=== PATIENT | female | born 1975 | race Caucasian/White ===

== ENCOUNTER 2019-09-16 13:30 | Outpatient (CLI) | payer OTHER, SELFPAY ==
--- NOTE | 2019-09-16 | XR_ITS ---
WS: [id number] RIGHT KNEE: 3 VIEW(S) TECHNIQUE: AP, oblique(s) and lateral. HISTORY: KNEE PAIN COMPARISON: None available. No fracture or dislocation. No joint space narrowing or osteophytes. Small suprapatellar joint effusion. No soft tissue abnormality. XR/XR knee RT 3V* [id number] IMPRESSION: 1. No acute fracture identified. 2. Small suprapatellar joint effusion. 3. If pain persists consider follow-up CT evaluation for occult fracture.
== END 2019-09-16 13:31 | disposition home or self-care (01) ==
PROVIDERS: Family Provider Nurse Practitioner Family; PCP Nurse Practitioner Family; Visit Provider Nurse Practitioner Family
DX: M25.561 Pain in right knee (principal); M25.461 Effusion, right knee
CPT/HCPCS: 73562

== ENCOUNTER 2019-09-18 13:48 | Outpatient (CLI) | payer OTHER, SELFPAY | END 2019-09-18 13:49 | disposition home or self-care (01) | LOC: WOUND 13:48 | PROVIDERS: Family Provider Nurse Practitioner Family; PCP Nurse Practitioner Family; Visit Provider Thoracic Surgery (Cardiothoracic Vascular Surgery) | DX: I96 Gangrene, not elsewhere classified (principal); L97.822 Non-pressure chronic ulcer of other part of left lower leg with fat layer exposed | CPT/HCPCS: 11042; G0463 ==

== ENCOUNTER 2019-09-25 14:40 | Outpatient (CLI) | payer OTHER, SELFPAY | END 2019-09-25 14:41 | disposition home or self-care (01) | LOC: WOUND 14:40 | PROVIDERS: Family Provider Nurse Practitioner Family; PCP Nurse Practitioner Family; Visit Provider Thoracic Surgery (Cardiothoracic Vascular Surgery) | DX: I96 Gangrene, not elsewhere classified (principal); L97.822 Non-pressure chronic ulcer of other part of left lower leg with fat layer exposed | CPT/HCPCS: 11042 ==

== ENCOUNTER 2019-10-09 09:25 | Outpatient (CLI) | payer OTHER, SELFPAY | END 2019-10-09 09:26 | disposition home or self-care (01) | LOC: WOUND 09:26 | PROVIDERS: Family Provider Nurse Practitioner Family; PCP Nurse Practitioner Family; Visit Provider Emergency Medicine | DX: I96 Gangrene, not elsewhere classified (principal); L97.822 Non-pressure chronic ulcer of other part of left lower leg with fat layer exposed | CPT/HCPCS: 11042; 87070; 87176; 87205 ==

== ENCOUNTER 2019-10-16 08:56 | Outpatient (CLI) | payer OTHER, SELFPAY | END 2019-10-16 08:57 | disposition home or self-care (01) | LOC: WOUND 08:59 | PROVIDERS: Family Provider Nurse Practitioner Family; PCP Nurse Practitioner Family; Visit Provider Emergency Medicine | DX: L97.822 Non-pressure chronic ulcer of other part of left lower leg with fat layer exposed (principal) | CPT/HCPCS: 11042 ==

== ENCOUNTER 2019-10-23 10:27 | Outpatient (CLI) | payer OTHER, SELFPAY | END 2019-10-23 10:28 | disposition home or self-care (01) | LOC: WOUND 10:29 | PROVIDERS: Family Provider Nurse Practitioner Family; PCP Nurse Practitioner Family; Visit Provider Nurse Practitioner Family | DX: L97.822 Non-pressure chronic ulcer of other part of left lower leg with fat layer exposed (principal) | CPT/HCPCS: 11042 ==

== ENCOUNTER 2020-10-18 16:05 | Emergency (ER) | payer OTHER, SELFPAY ==
[2020-10-18 16:34] VITALS: BP 201/145; PULSE 96; RESP 22; TEMP 36.4; O2SAT 92; BMI 43.0
--- NOTE | 2020-10-18 16:35 | ED_ITS ---
HPI - Epistaxis General: Chief complaint: Epistaxis Stated complaint: nose bleed , positive covid Time Seen by Provider: 10/18/20 16:35 History of Present Illness: HPI Narrative: 45-year-old female comes in today with complaints of nosebleed on and off for the last 3 days. Patient reports some significant episodes of bleeding at a time. Patient has had a recent Covid 19 infection about 8 days ago. Patient appears well. Patient does report some sinus pain and pressure. Review of Systems General: Reports: 10 or more systems reviewed and unremarkable except in HPI and below ENMT: Reports: epistaxis Physical Exam Const: COMMON NORMALS: no acute distress and patient oriented x3 GENERAL APPEARANCE: cooperative HENMT: COMMON NORMALS: normocephalic HEAD & SCALP: normal to inspection and normocephalic NOSE: Epistaxis present on the left TYMPANIC MEMBRANE: TM abnormal TM laterality: left Details: fluid behind TM and bilateral MOUTH: Normal oral and palatal mucosa present THROAT: posterior oropharynx normal Eye: GENERAL EYE: appearance normal, both eyes and all related structures Neck/C-Spine: COMMON NORMALS: full ROM Lymph: LYMPHATIC: no lymphadenopathy noted Chest: COMMONS NORMALS: normal inspection of the chest Resp: COMMON NORMALS: normal respiratory effort EFFORT & INSPECTION: Yes able to speak in complete sentences Cardio: COMMON NORMALS: regular rate and regular rhythm RATE: regular rate RHYTHM: regular rhythm GI: COMMON NORMALS: non-tender Extremity: COMMON NORMALS: normal to inspection Neuro: COMMON NORMALS: patient oriented x3 and moves all extremities Psych: COMMON NORMALS: mental status grossly normal and cooperative Skin: COMMON NORMALS: no rashes or lesions noted GENERAL SKIN EXAM: no rashes or lesions noted Course Vital Signs: Vital signs: Vital Signs Temperature 97.6 F 10/18/20 16:34 Pulse Rate 96 10/18/20 16:34 Respiratory Rate 22 H 10/18/20 16:34 Blood Pressure 201/145 10/18/20 16:34 Pulse Oximetry 92 10/18/20 16:34 MDM - Epistaxis MDM Narrative: Medical decision making narrative: 45-year-old female comes in with nosebleed. On exam patient has some blood in the left naris. Also patient has fluid behind both tympanic membranes which panic membrane appears blood- tinged. Some sinus pressure is noted on palpation. Vital signs are normal, except for elevated blood pressure. Differential diagnosis includes but not limited to sinusitis, idiopathic epistaxis, hypertension. Patient was given 1 tablet 0.1 mg clonidine, 2 sprays of aspirin each nostril, and nasal clamp. Bleeding was controlled on exam. Patient will be continued on Augmentin and Afrin nasal spray and recommended to continue with routine medications for blood pressure. Patient reported understanding of care plan and need for follow-up with ENT. Case management was requested to assist with ENT referral. Discharge Plan Discharge Patient Disposition: Home Clinical Impression: Epistaxis Condition: Stable Prescriptions: New Augmentin 875-125 mg tablet 1 tab PO BID Qty: 14 RF: 0 No Action lovastatin 40 mg tablet 40 mg PO BEDTIME RF: 0 Euthyrox 100 mcg tablet 100 mcg PO QAM RF: 0 ibuprofen 200 mg Tablet 800 mg PO PRN RF: 0 lisinopril 5 mg tablet 5 mg PO QAM RF: 0 hydrochlorothiazide 25 mg tablet 25 mg PO QAM RF: 0 Discharge Orders: Discharge ED (Routine); Ordered 10/18/20 Ordered By: Ramon Bazan Referrals: Lito Salas NP [Primary Care Provider] - Discharge Diet: Usual diet Discharge Activity: Increase activity as tolerated Patient Instructions: Epistaxis (ED), Opioid Safety Activity Restrictions/Additional Instructions: Home and rest. Drink plenty of water. Continue with routine medications as directed. Take antibiotic twice a day for 7 days. Use Afrin nasal spray 2 sprays each nostril 3 times a day for the next 3 days. Call ENT office in the morning to arrange a follow-up appointment for your nosebleed. I will place a referral with case management if you need assistance. Return to the ER for worsening symptoms or new concerns. Avoid blowing your nose or picking her nose. Coding Level of Care Code ED Bottom Cager for Dennise Felipe
[2020-10-18] MEDS: amoxicillin-clav 875-125 mg Tablet 1 TAB PO (17:39)
[2020-10-18] MEDS: oxymetazoline 0.05% Nasal Spray 15 mL 2 SPRAY NOSTRIL-B (17:39)
[2020-10-18 17:40] VITALS: BP 142/91
[2020-10-18] MEDS: cloNIDine 0.1 mg Tablet PO (17:40)
[2020-10-18 17:51] VITALS: BP 142/91; PULSE 90; O2SAT 92
--- NOTE | 2020-10-19 15:26 | DCPLANNER ---
manager roofing had message to schedule a follow up appointment for patient with ENT. manager roofing emailed patients information to Pam Casper and Phyllis at [facility] General Surgery / ENT clinic. Patients information will be printed and reviewed. Clinic will call patient with appointment information.
--- NOTE | 2020-10-21 14:20 | DCPLANNER ---
Patient has a follow up appointment scheduled for , October 29, 2020 at 10:[address] Eric. Clinic will call patient with appointment information.
--- NOTE | 2020-11-06 14:48 | DCPLANNER ---
Patient had a follow up appointment scheduled for 10.29.20 with ENT - appointment was rescheduled.
== END 2020-10-18 17:45 | disposition home or self-care (01) ==
PROVIDERS: Emergency Provider Nurse Practitioner Family; PCP Nurse Practitioner Family
DX: R04.0 Epistaxis (principal)
CPT/HCPCS: 99283

== ENCOUNTER 2022-08-18 15:50 | Emergency (ER) | payer SELFPAY ==
[2022-08-18 15:59] VITALS: BP 181/94; PULSE 91; RESP 18; TEMP 36.8; O2SAT 98
--- NOTE | 2022-08-18 16:23 | W.ED.BACK ---
HPI - Back Pain/Injury General: Chief Complaint: Back Pain/Injury Stated Complaint: Low back pain Time Seen by Provider: 08/18/22 15:56 History of Present Illness: Patient is a 47-year-old female comes to the ED with low back pain. Symptoms started about 2-1/2 weeks ago. 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 2-1/2 weeks ago pbfcef-yo-zqi fell down on the floor and patient went to pick her up and injured her lower back. Patient says she was not using good body mechanics when she went to lift her pdqwon-pc-ljz causing her lower back pain on left side. Pain is currently a 9 out of 10 and radiates down into the upper part of left leg. Denies any cauda equina symptoms, dysuria or hematuria. Patient has been taking at home Tylenol ibuprofen with no relief. Associated symptoms: Deny abdominal pain, chills, dysuria, fatigue, fever(s), hematuria, nausea or vomiting Review of Systems Const: Denies: fever(s), chills or fatigue Eyes: Denies: change in vision or eye discomfort ENMT: Denies: throat pain, odynophagia, nasal discharge or nasal congestion Card: Denies: chest pain, palpitations, edema, swelling of feet/ankles, dyspnea on exertion or orthopnea Resp: Denies: dyspnea, productive cough or non-productive cough GI: Denies: abdominal pain, nausea, vomiting, diarrhea, constipation or hematochezia : Denies: flank pain, dysuria or hematuria Musc: Reports: back pain; Denies: neck pain or extremity swelling Skin/Breast: Denies: rash or new lesions Neuro: Denies: headache(s), numbness in extremities or weakness in extremities PFS ED PFSH: Medical History (Updated 08/19/22 @ 08:20 by ELMER Hickman) No pertinent family history Surgical History (Updated 08/19/22 @ 08:20 by ELMER Hickman) No pertinent past surgical history Physical Exam Const: COMMON NORMALS: no acute distress, patient oriented x3 and alert HENMT: COMMON NORMALS: normocephalic HEAD & SCALP: normocephalic MOUTH: Normal oral and palatal mucosa present THROAT: posterior oropharynx normal and uvula midline Neck/C-Spine: COMMON NORMALS: supple GENERAL: Yes normal visual inspection Resp: COMMON NORMALS: normal respiratory effort, No retractions, No use of accessory muscles and clear to auscultation bilaterally AUSCULTATION: clear to auscultation bilaterally Cardio: COMMON NORMALS: regular rate, regular rhythm, S1 normal heart sound present, S2 normal heart sound present, No gallops present (Cardio), No clicks present (Cardio), No murmurs present (Cardio) and Peripheral pulses 2+ throughout RATE: regular rate RHYTHM: regular rhythm HEART SOUNDS: S1 normal heart sound present and S2 normal heart sound present PERIPHERAL PULSES: Peripheral pulses 2+ throughout GI: COMMON NORMALS: Normal to inspection, nondistended, normoactive bowel sounds present, Soft to palpation, non-tender and no masses PALPATION: Yes Soft to palpation : COMMON NORMALS: Yes no CVA tenderness BLADDER/KIDNEY EXAM: Yes no CVA tenderness Back/Pelvis: COMMON NORMALS: no CVA tenderness LUMBAR SPINE/LOWER BACK: Yes pain with ROM, No lumbar spinal tenderness and Yes paraspinal muscle tenderness Lumbar paraspinal muscle tenderness: left left lumbar paraspinal muscle tenderness: L3, L4 and L5 Extremity: COMMON NORMALS: normal to inspection Neuro: COMMON NORMALS: patient oriented x3 SENSORIUM/ORIENTATION: Yes alert GAIT: Yes Normal gait present Skin: GENERAL SKIN EXAM: dry skin Course Vital Signs: Vital signs: Vital Signs Temperature 98.2 F 08/18/22 15:59 Pulse Rate 91 08/18/22 15:59 Respiratory Rate 18 08/18/22 15:59 Blood Pressure 181/94 08/18/22 15:59 Pulse Oximetry 98 08/18/22 15:59 Oxygen Delivery Me thod Room Air 08/18/22 15:59 MDM - Back Pain/Injury Medical Decision Making Patient is a 47-year-old female comes to the ED with low back pain. Symptoms started about 2-1/2 weeks ago. 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 2-1/2 weeks ago qrqvts-px-tuu fell down on the floor and patient went to pick her up and injured her lower back. Patient says she was not using good body mechanics when she went to lift her dazcvg-sp-uid causing her lower back pain on left side. Pain is currently a 9 out of 10 and radiates down into the upper part of left leg. Denies any cauda equina symptoms, dysuria or hematuria. Patient has been taking at home Tylenol ibuprofen with no relief. Vitals are stable. Patient appears nontoxic in no acute distress. She is some lumbar paraspinal muscle tenderness on the left side L3-L5. Rest of exam is benign. Patient was given dose of Toradol, Norflex and Decadron here in the ED. She is stable for discharge home diagnosed with strain of lumbar region and sent home with a prescription for muscle relaxer, NSAID and prednisone. Return to ED precautions given. Follow-up with PCP within the next week for reevaluation. Patient understood and agreed with plan. Discharge Plan Discharge Patient Disposition: Home Clinical Impression: Strain of lumbar region Qualifiers: Encounter type: initial encounter Qualified Code(s): S39.012A - Strain of muscle, fascia and tendon of lower back, initial encounter Condition: Stable Prescriptions: New meloxicam 15 mg tablet 15 mg PO DAILY PRN (Reason: pain) Qty: 20 0RF Medrol (Oswald) 4 mg tablets,dose pack See Rx Instructions .ROUTE .COMPLEX Qty: 21 0RF Rx Instructions: orally per package directions methocarbamol 750 mg tablet 750 mg PO Q8H PRN (Reason: Back muscle spasms and pain) Qty: 20 0RF No Action lovastatin 40 mg tablet 40 mg PO BEDTIME Euthyrox 100 mcg tablet 100 mcg PO QAM ibuprofen 200 mg Tablet 800 mg PO PRN lisinopril 5 mg tablet 5 mg PO QAM hydrochlorothiazide 25 mg tablet 25 mg PO QAM Augmentin 875-125 mg tablet 1 tab PO BID Qty: 14 0RF Discharge Orders: Discharge ED (Routine); Ordered 08/18/22 Ordered By: Evan Owen Referrals: Reshma Fuchs FNP [Primary Care Provider] - Discharge Diet: Regular Discharge Activity: Increase activity as tolerated Patient Instructions: Low Back Strain (ED) Activity Restrictions/Additional Instructions: Follow-up with medical provider as directed in the next 5 to 7 days for reevaluation. Stretch lower back out daily, massage sore muscles to help with symptoms. Take medications as prescribed. You can start taking your prescribed Medrol Dosepak tomorrow since you received a shot of steroid here in the ED today. Return to the ER or your medical provider if condition worsens. Please read and understand discharge instructions. Thank you for choosing [facility] for your healthcare needs today. Please realize this is an emergency room and that we are providing you with a medical screening exam and this may not be complete and all inclusive of all the testing and or work up that you may need to determine your ailment or severity of your illness. It is very important that you follow up as instructed or that you return to the Emergency Department should you have concerns or if your condition changes or worsens in any way. Coding Level of Care Code ED Lime [place]n Worker for Dennise Felipe
[2022-08-18] MEDS: dexamethasone 10 mg/mL INJ IM (16:38)
[2022-08-18] MEDS: ketorolac 60 mg/2 mL INJ IM (16:38)
[2022-08-18] MEDS: orphenadrine 30 mg/mL Inj 2 mL 60 MG IM (16:38)
== END 2022-08-18 17:07 | disposition home or self-care (01) ==
PROVIDERS: Emergency Provider Physician Assistant; PCP Nurse Practitioner Family
DX: S39.012A Strain of muscle, fascia and tendon of lower back, initial encounter (principal); X50.0XXA Overexertion from strenuous movement or load, initial encounter; Y93.F2 Activity, caregiving, lifting
CPT/HCPCS: 96372; 99284; J1100; J1885; J2360

== ENCOUNTER 2023-04-13 13:58 | Outpatient (CLI) | payer OTHER, SELFPAY ==
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
== END 2023-04-13 13:59 | disposition home or self-care (01) ==
LOC: RAD 14:01
PROVIDERS: PCP Family Medicine; Visit Provider Nurse Practitioner
DX: T14.8XXA Other injury of unspecified body region, initial encounter (principal); V89.2XXA Person injured in unspecified motor-vehicle accident, traffic, initial encounter; M47.814 Spondylosis without myelopathy or radiculopathy, thoracic region; M41.9 Scoliosis, unspecified
CPT/HCPCS: 72020

== ENCOUNTER → 2023-04-20 14:03 | Outpatient (BNVA) | payer OTHER, SELFPAY | PROVIDERS: PCP Family Medicine; Visit Provider Family Medicine | DX: E03.9 Hypothyroidism, unspecified (principal); Z86.39 Personal history of other endocrine, nutritional and metabolic disease | CPT/HCPCS: 80053; 84439; 84443; 86376 ==

== ENCOUNTER 2023-05-18 13:47 | Outpatient (CLI) | payer OTHER, SELFPAY ==
--- NOTE | 2023-05-18 13:56 | MM_ITS ---
WS: [id number] BILATERAL SCREENING DIGITAL TOMOSYNTHESIS MAMMOGRAM WITH CAD HISTORY: SCREENING COMPARISON: None available. Bilateral CC and MLO views with tomosynthesis and synthetic mammography submitted. Computer aided det ection analyzed. Breast composition: There are scattered areas of fibroglandular density. No suspicious masses, microc alcifications or architectural distortion. Benign lymph nodes in the upper outer quadrants of each br east. IMPRESSION: MM/[place] [id number] BI-RADS: 2-Benign FOLLOW UP: 1 Year Follow-up
== END 2023-05-18 13:48 | disposition home or self-care (01) ==
LOC: RAD 13:48
PROVIDERS: PCP Family Medicine; Visit Provider Family Medicine
DX: Z12.31 Encounter for screening mammogram for malignant neoplasm of breast (principal)
CPT/HCPCS: 77063; 77067

== ENCOUNTER → 2023-06-13 12:14 | Outpatient (BNVA) | payer OTHER, SELFPAY | PROVIDERS: PCP Family Medicine; Visit Provider Family Medicine | DX: M10.9 Gout, unspecified; E03.9 Hypothyroidism, unspecified | CPT/HCPCS: 84439; 84443; 84550 ==

== ENCOUNTER 2024-08-05 11:39 | Inpatient (IN) | payer SELFPAY ==
[2024-08-05] VITALS (8 sets, daily range): BP systolic 143–192; BP diastolic 84–113; PULSE 92–99; RESP 16–20; TEMP 36.6; O2SAT 89–93
--- NOTE | 2024-08-05 11:42 | ECG_ITS ---
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 Measurements Intervals [place] Rate: 100 P: 23 CA: 150 QRS: 12 QRSD: 100 T: -45 QT: 377 QTc: 488 Interpretive Statements SINUS TACHYCARDIA POSSIBLE ANTERIOR MYOCARDIAL INFARCTION , OF INDETERMINATE AGE [30 ms Q WAVE IN V3/V4, OR R < 0.2 mV IN V4] MODERATE T-WAVE ABNORMALITY, CONSIDER LATERAL ISCHEMIA [-0.1+ mV T-WAVE IN I/aVL/V5/V6] MODERATE T-WAVE ABNORMALITY, CONSIDER INFERIOR ISCHEMIA [-0.1+ mV T-WAVE IN II/aVF] Compared to ECG 05/11/2016 11:39:23 Myocardial infarct finding now present T-wave abnormality now present Possible ischemia now present Sinus rhythm no longer present Electronically Signed On 08-06-2024 06:27:43 CDT by Angelito Porter M.D. [email or web address]
--- NOTE | 2024-08-05 11:42 | XRR_ITS ---
PROCEDURE INFORMATION: Exam: XR Chest Exam date and time: 08/05/2024 11:55 AM Age: 49 years old Clinical indication: Shortness of breath; Additional info: SOB TECHNIQUE: Imaging protocol: Radiologic exam of the chest. Views: 1 view. COMPARISON: CR XR thoracic spine 1V [id number] 04/13/2023 2:39 PM FINDINGS: Lungs: Unremarkable. No consolidation. Pleural spaces: Unremarkable. No pleural effusion. No pneumothorax. Heart/Mediastinum: Unremarkable. No cardiomegaly. Bones/joints: Unremarkable. XR/XR chest 1V portable [id number] IMPRESSION: No acute findings.
[2024-08-05 12:04] LABS: Basophils # 0.1 10^3/uL (0.0-0.1); Basophils % 0.6 %; Eosinophils # 0.2 10^3/uL (0.0-0.8); Eosinophils % 2.8 %; Hematocrit 42.6 % (36-47); Lymphocytes # 1.1 10^3/uL (0.8-4.8); Lymphocytes % 13.5 %; Mean Corpuscular HGB Conc 34.3 g/dL (30-55); Mean Corpuscular Hemoglobin 36.5 pg (27-33); Mean Corpuscular Volume 106.5 fl (85-98); Mean Platelet Volume 10.3 fL (7.4-10.4); Monocytes # 0.4 10^3/uL (0.2-0.9); Monocytes % 4.6 %; Neutrophils # 6.61 10^3/uL (1.8-7.7); Neutrophils % 78.3 %; Nucleated Red Blood Cells % 0 %; Platelet Count 213 10^3/cmm (157-399); Red Cell Distribution Width 14.4 % (12.1-15.1); White Blood Count 8.45 10^3/uL (3.29-11.43)
[2024-08-05 12:18] LABS: INR 1.05 (0.8-1.2)
[2024-08-05 12:39] LABS: Alanine Aminotransferase 14 U/L (0-33); Albumin Level 3.6 g/dL (3.5-5.2); Alkaline Phosphatase 113 U/L (35-105); Anion Gap 17.6 (5-19); Aspartate Amino Transferase 15 U/L (0-32); Blood Urea Nitrogen 10 mg/dL (6-20); Calcium 8.8 mg/dL (8.5-10.5); Carbon Dioxide 22 mmol/L (22-29); Chloride 100 mmol/L (98-107); Creatinine Clr Calc Pharmacy 165.1782; Globulin 3.4 g/dL (1.3-4.6); Glomerular Filtration Rate 88.2 mL/min (90-130); Glucose 128 mg/dL (65-115); NT Pro B Type Natriuretic Pept 2071 pg/mL (0-125); Osmolality Calculated 283 mOsm/kg (285-295); Potassium 3.6 mmol/L (3.5-5.1); Sodium 136 mmol/L (136-145); Total Bilirubin 0.6 mg/dL (0.15-1.2)
--- NOTE | 2024-08-05 12:41 | USR_ITS ---
PROCEDURE INFORMATION: Exam: US Duplex Right Upper Extremity Arteries Exam date and time: 08/05/2024 1:40 PM Age: 49 years old Clinical indication: Pain; Arm, lower; Right; Additional info: Pain, coolness, numbness TECHNIQUE: Imaging protocol: Right Real-time ultrasound scan of the arteries of the right upper extremity with 2-D dunlap scale, color Doppler flow and spectral waveform analysis. COMPARISON: No relevant prior studies available. FINDINGS: Right subclavian artery: No occlusion or significant stenosis. Normal waveform. Right axillary artery: No occlusion or significant stenosis. Monophasic waveform. Right brachial artery: No occlusion or significant stenosis. Monophasic waveform. Right radial artery: No occlusion or significant stenosis. Monophasic waveform. Right ulnar artery: No occlusion or significant stenosis. Monophasic waveform. US/[place] [id number] IMPRESSION: Monophasic waveforms distal to the subclavian artery.
--- NOTE | 2024-08-05 12:42 | W.ED.GENADLT ---
HPI - General Adult General: Chief complaint: Shortness of Breath/Dyspnea Stated complaint: sob, R side upper body numbness Time Seen by Provider: 08/05/24 12:22 Source: patient Mode of arrival: ambulatory Limitations: no limitations History of Present Illness: Patient is a 49-year-old female who presents to ED today stating that she has been sick for three days. She tells me she has had a productive cough, shortness of breath, chest pain, subjective fever 2 days ago, and noticed yesterday she started having some pain to the right side of her neck and right arm. She felt like pain was so bad while in the shower trying to wash her hair that she had to stop. She reports the arm feels burning and numb. She has not noticed any obvious color or temperature changes to the extremity. No edema. Denies sick contacts. She states she has a pulse ox at home and states at times, her oxygen was getting down into the mid 80s. Patient is satting roughly 93 to 94% on room air during my initial examination. Onset (ago): day(s) Radiation: neck and extremity Quality: burning Pain Consistency: constant Relieving factors: none Exacerbating factors: none Associated symptoms: Reports chest pain and dyspnea; Deny headache(s), nausea, rash, palpitations, syncope or vomiting Treatments prior to arrival: none Related Data Home Medications ?Medication ?Instructions ?Recorded ?Confirmed allopurinol 100 mg tablet 200 mg PO DAILY PRN gout 08/05/24 08/05/24 minocycline 100 mg capsule 100 mg PO BID PRN Acne/rash 08/05/24 08/05/24 Previous Rx's ?Medication ?Instructions ?Recorded methocarbamol 750 mg tablet 750 mg PO TID PRN muscle spasm #20 04/20/23 tabs levothyroxine 75 mcg capsule 75 mcg PO DAILY #60 caps 08/11/23 indomethacin 50 mg capsule See Rx Instructions .Route 10/09/23 .COMPLEX #21 caps meloxicam 15 mg tablet 15 mg PO DAILY PRN back pain #30 01/08/24 tabs Allergies Allergy/AdvReac Type Severity Reaction Status Date / Time No Known Allergies Allergy Verified 08/05/24 11:56 Review of Systems Const: Reports: fever(s) (two days ago-subjective); Denies: chills or body aches Eyes: Denies: change in vision, blurry vision or photophobia ENMT: Denies: throat pain, odynophagia, nasal discharge, nasal congestion or sinus pain Card: Reports: chest pain and dyspnea on exertion; Denies: palpitations, irregular heart rhythm, edema, swelling of feet/ankles, lightheadedness, syncope, pre-syncope, orthopnea, leg pain with exertion or acrocyanosis Resp: Reports: dyspnea, productive cough, change in phlegm color and chest congestion; Denies: wheezing, pain on inspiration or hemoptysis GI: Denies: abdominal pain, nausea, vomiting, heartburn or diarrhea : Denies: flank pain or dysuria Musc: Reports: neck pain and extremity pain (R arm); Denies: back pain, extremity swelling, joint pain, joint swelling, joint redness, joint warmth or joint stiffness Skin/Breast: Denies: rash Neuro: Reports: sensory changes (R arm numbness/burning); Denies: headache(s), weakness in extremities, lack of coordination, difficulty walking or dizziness PFSH ED PFSH: Medical History Morbid obesity with BMI of 50.0-59.9, adult Rosacea Hypothyroidism No pertinent family history Surgical History No pertinent past surgical history Social History Smoking and tobacco/nicotine status: never used tobacco/nicotine Alcohol intake: current Alcohol intake frequency: few times a month Substance/Drug Use: never Adopted: No Caregiver/support person: No Lives independently: No Household members: spouse and family Physical Exam Const: COMMON NORMALS: no acute distress, patient oriented x3, no limitations, alert and well nourished GENERAL APPEARANCE: cooperative NUTRITIONAL APPEARANCE: obese morbidly obese (BMI 54.5) ORIENTATION/CONSCIOUSNESS: Yes awake, Yes oriented to person, Yes oriented to place and Yes oriented to time HENMT: COMMON NORMALS: normocephalic and atraumatic HEAD & SCALP: normal to inspection, normocephalic and atraumatic FACE & SINUS: normal facial exam and face symmetric Eye: COMMON NORMALS: no scleral icterus Neck/C-Spine: COMMON NORMALS: full ROM, no lymphadenopathy, supple, no meningeal signs and no JVD GENERAL: Yes normal visual inspection, No anterior neck swelling and No submandibular swelling CERVICAL SPINE: Yes cervical ROM normal Chest: COMMONS NORMALS: normal inspection of the chest and normal palpation of entire chest wall Resp: COMMON NORMALS: normal respiratory effort and clear to auscultation bilaterally AUSCULTATION: clear to auscultation bilaterally Cardio: COMMON NORMALS: no JVD, regular rate and regular rhythm RATE: regular rate RHYTHM: regular rhythm : COMMON NORMALS: Yes no CVA tenderness BLADDER/KIDNEY EXAM: Yes no CVA tenderness Back/Pelvis: COMMON NORMALS: no CVA tenderness Extremity: COMMON NORMALS: normal to inspection, full ROM, no joint enlargement, no clubbing, cyanosis or edema, no calf tenderness and no pedal edema GENERAL: Yes normal exam except as noted OTHER: R UE feels slightly cooler than L; could not obviously palpate radial artery; she complains of parasthesias; full ROM-does complain of pain in her shoulder/neck with passive ROM Neuro: JENNIFER COMA SCALE: document GCS findings [place] coma scale eye opening: Spontaneous [place] coma scale verbal response: Orientated [place] coma scale motor response: Obey commands Jennifer coma scale total score: 15 COMMON NORMALS: patient oriented x3, moves all extremities and no focal motor deficits SENSORIUM/ORIENTATION: Yes alert, Yes oriented to person, Yes oriented to place and Yes oriented to time MENINGEAL SIGNS: Yes no meningeal signs Skin: COMMON NORMALS: no rashes or lesions noted GENERAL SKIN EXAM: no rashes or lesions noted Course Consultations: Consultation #1: Dr. Rueda vascular-as she has flow throughout extremity they would not intervene on this acutely and recommend follow up as an outpatient Consultation #2: Dr. Hair-reviewed CT findings of bilateral PEs/saddle embolus; stated they would not perform thrombectomy unless there was evidence of heart strain on an echo or abnormal troponins (discussed her baseline and 2hr trops); discussed how there was strain based on her EKG but he said it is more dependent on echo/trop results Vital Signs: Vital signs: Vital Signs Temperature 97.9 F 08/05/24 11:46 Pulse Rate 96 08/05/24 21:34 Respiratory Rate 16 08/05/24 21:34 Blood Pressure 153/97 08/05/24 21:34 Pulse Oximetry 93 08/05/24 21:34 Oxygen Delivery Me thod Room Air 08/05/24 21:34 MDM - General Adult Medical Decision Making Patient is a 49-year-old here for complaints of chest pain, shortness of breath, cough, and right arm pain/paresthesias. She was found to have high-grade stenosis/occlusion from her mid axillary artery to proximal/mid brachial artery with reconstitution of collateral flow. Her radial and ulnar arteries are grossly patent. Spoke to vascular at [facility] who stated they would not intervene emergently and recommended outpatient follow-up. She was also found to have bilateral proximal pulmonary emboli as well as a saddle embolus. Spoke to IR at [facility] who stated they would not do a thrombectomy unless there was evidence of heart strain on echo or based on her troponins (discussed how there is strain evidence on her EKG). Echocardiogram was obtained here and reviewed with Dr. Porter. He stated there is no strong evidence for RV heart strain. Her baseline troponin was normal with a nonsignificant delta. At this point, if she is not a candidate for thrombectomy, she can be admitted here for IV heparin. This was started during her emergency department stay. Spoke to hospitalist Dr. Paul who will accept patient. Case discussed with Dr. Wells who will place admit orders. Medical Records I reviewed the patient's medical records. Lab Data I reviewed the patient's lab results. 08/05/24 11:58 08/05/24 11:58 Radiology Impressions Chest X-Ray 08/05/24 11:42 IMPRESSION: No acute findings. Duplex Scan Upper Extremity Artery 08/05/24 12:41 IMPRESSION: Monophasic waveforms distal to the subclavian artery. Upper Extremity CTA 08/05/24 14:07 IMPRESSION: High-grade stenosis/occlusion from the mid axillary artery to the proximal to mid brachial artery. Reconstitution of the distal brachial artery, likely from collateral flow. The radial and ulnar arteries appear grossly patent. This could be further assessed with fluoroscopic angiography if warranted. ADDENDUM: 08/05/24 3175 Upon further review, there are filling defects within the right and left pulmonary arteries and visualized proximal bilateral upper lobar arteries, compatible with bilateral pulmonary emboli. There also appears to be a saddle embolus which extends into both the right and left pulmonary arteries. The extent of pulmonary emboli is not fully assessed on this examination, and a dedicated CTA chest tailored for pulmonary artery evaluation could be considered. ADDENDUM: 08/05/24 4453 THIS REPORT CONTAINS FINDINGS THAT MAY BE CRITICAL TO PATIENT CARE. The findings were verbally communicated via telephone conference with JESSIE PAREDES at 4:47 PM CDT on 08/05/2024. The findings were acknowledged and understood. Laboratory Results WBC 8.45 10^3/uL (3.29-11.43) 08/05/24 11:58 RBC 4.00 10^6/uL (3.85-5.65) 08/05/24 11:58 Hgb 14.60 g/dL (11.27-16.99) 08/05/24 11:58 Hct 42.6 % (36-47) 08/05/24 11:58 MCV 106.5 fl (85-98) H 08/05/24 11:58 MCH 36.5 pg (27-33) H 08/05/24 11:58 MCHC 34.3 g/dL (30-55) 08/05/24 11:58 RDW 14.4 % (12.1-15.1) 08/05/24 11:58 Plt Count 213 10^3/cmm (157-399) 08/05/24 11:58 MPV 10.3 fL (7.4-10.4) 08/05/24 11:58 Neut % (Auto) 78.3 % 08/05/24 11:58 Lymph % (Auto) 13.5 % 08/05/24 11:58 [place] % (Auto) 4.6 % 08/05/24 11:58 Eos % (Auto) 2.8 % 08/05/24 11:58 Baso % (Auto) 0.6 % 08/05/24 11:58 Neut # (Auto) 6.61 10^3/uL (1.8-7.7) 08/05/24 11:58 Lymph # (Auto) 1.1 10^3/uL (0.8-4.8) 08/05/24 11:58 Greene # (Auto) 0.4 10^3/uL (0.2-0.9) 08/05/24 11:58 Eos # (Auto) 0.2 10^3/uL (0.0-0.8) 08/05/24 11:58 Baso # (Auto) 0.1 10^3/uL (0.0-0.1) 08/05/24 11:58 Nucleated RBC % (auto) 0 % 08/05/24 11:58 Nucleated RBCs # 0.0 /100WBC 08/05/24 11:58 PT 14.50 SECONDS (12.1-14.9) 08/05/24 11:58 INR 1.05 (0.8-1.2) 08/05/24 11:58 APTT 76.5 SECONDS (23.9-36.7) H 08/05/24 17:34 Sodium 136 mmol/L (136-145) 08/05/24 11:58 Potassium 3.6 mmol/L (3.5-5.1) 08/05/24 11:58 Chloride 100 mmol/L (98-107) 08/05/24 11:58 Carbon Dioxide 22 mmol/L (22-29) 08/05/24 11:58 Anion Gap 17.6 (5-19) 08/05/24 11:58 BUN 10 mg/dL (6-20) 08/05/24 11:58 Creatinine 0.7 mg/dL (0.5-0.9) 08/05/24 11:58 GFR Calculation 88.2 mL/min (90-130) L 08/05/24 11:58 Glucose 128 mg/dL (65-115) H 08/05/24 11:58 Calculated Osmolality 283 mOsm/kg (285-295) L 08/05/24 11:58 Calcium 8.8 mg/dL (8.5-10.5) 08/05/24 11:58 Total Bilirubin 0.6 mg/dL (0.15-1.2) 08/05/24 11:58 AST 15 U/L (0-32) 08/05/24 11:58 ALT 14 U/L (0-33) 08/05/24 11:58 Alkaline Phosphatase 113 U/L (35-105) H 08/05/24 11:58 Troponin T Baseline 10 ng/L (0-10) 08/05/24 11:58 Troponin T 120 Minute 12.44 ng/L (0-10) H 08/05/24 13:28 Delta Troponin T 2.44 ABS# (0-10) 08/05/24 13:28 Troponin T Hi Sens 6Hr 12.19 ng/L (0-10) H 08/05/24 17:34 Troponin T Hi Sens 6Hr Delta 2.19 ng/L (0-12) 08/05/24 17:34 NT-Pro-B Natriuret Pep 2071 pg/mL (0-125) H 08/05/24 11:58 Total Protein 7.0 g/dL (6.6-8.7) 08/05/24 11:58 Albumin 3.6 g/dL (3.5-5.2) 08/05/24 11:58 Globulin 3.4 g/dL (1.3-4.6) 08/05/24 11:58 All radiology interpretation(s) finalized by discharge Discharge Plan Discharge Patient Disposition: Placed in Observation Clinical Impression: Acute saddle pulmonary embolism, Pulmonary embolism, bilateral, 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
[2024-08-05 13:12] LABS: Troponin(5th) Baseline 10 ng/L (0-10)
[2024-08-05 13:47] LABS: Troponin 5 2HR 12.44 ng/L (0-10); Troponin 5 2HR Delta 2.44 ABS# (0-10)
--- NOTE | 2024-08-05 14:07 | CTR_ITS ---
PROCEDURE INFORMATION: Exam: CTA Right Upper Extremity With Contrast Exam date and time: 08/05/2024 2:50 PM Age: 49 years old Clinical indication: Pain; Upper arm; Right; Additional info: Pain, paresthesia, abnormal us-monophasic flow TECHNIQUE: Imaging protocol: Computed tomographic angiography of the right upper extremity with contrast, including non-contrast images if performed. 3D rendering (Not supervised by radiologist): MIP and/or 3D reconstructed images were created by the technologist. Radiation optimization: All CT scans at this facility use at least one of these dose optimization techniques: automated exposure control; mA and/or kV adjustment per patient size (includes targeted exams where dose is matched to clinical indication); or iterative reconstruction. Contrast material: OMNI 350; Contrast volume: 125 ml; Contrast route: INTRAVENOUS (IV); COMPARISON: [place] [id number] 08/05/2024 1:40 PM RADIATION DOSE METRICS: Total DLP (mGy-cm): 1104.36 FINDINGS: Right subclavian artery: No occlusion or significant stenosis. Axillary artery: The proximal axillary artery appears patent. However, the 2nd and 3rd portions of the axillary artery are nonopacified. Brachial artery: The proximal brachial artery is occluded with no contrast opacification. There is reconstitution of the artery in the proximal to mid upper arm Radial artery: No occlusion or significant stenosis. Ulnar artery: No occlusion or significant stenosis. Soft tissues: Unremarkable. CT/[place] [id number] IMPRESSION: High-grade stenosis/occlusion from the mid axillary artery to the proximal to mid brachial artery. Reconstitution of the distal brachial artery, likely from collateral flow. The radial and ulnar arteries appear grossly patent. This could be further assessed with fluoroscopic angiography if warranted.
[2024-08-05] MEDS: iohexol 350 mg/mL 500 mL Btl (per mL) IV (15:00)
--- NOTE | 2024-08-05 15:19 | ECG_ITS ---
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 Measurements Intervals [place] Rate: 97 P: 19 NM: 153 QRS: 10 QRSD: 101 T: -44 QT: 378 QTc: 481 Interpretive Statements SINUS RHYTHM POSSIBLE ANTERIOR MYOCARDIAL INFARCTION , OF INDETERMINATE AGE [30 ms Q WAVE IN V3/V4, OR R < 0.2 mV IN V4] MODERATE T-WAVE ABNORMALITY, CONSIDER LATERAL ISCHEMIA [-0.1+ mV T-WAVE IN I/aVL/V5/V6] MODERATE T-WAVE ABNORMALITY, CONSIDER INFERIOR ISCHEMIA [-0.1+ mV T-WAVE IN II/aVF] Compared to ECG 08/05/2024 11:51:17 Sinus tachycardia no longer present Myocardial infarct finding still present T-wave abnormality still present Possible ischemia still present Electronically Signed On 08-06-2024 06:40:08 CDT by Angelito Porter M.D. [email or web address]
--- NOTE | 2024-08-05 17:06 | PC.NURSE ---
PER REGGIE PT TO HAVE 5000 UNITS HEPARIN BOLUS
[2024-08-05] MEDS: heparin 5,000 unit/mL INJ 1 mL IVP (17:20)
[2024-08-05] MEDS: heparin drip 25,000 UNIT/500 ML PREMIX 49 UNIT IV (17:20)
--- NOTE | 2024-08-05 18:00 | USCV_ITS ---
Hemalatha Lowe Age: 49 Gender: F : 1975 Exam Date: 08/05/2024 20:01 Ordering Phys: Radha Perez Technologist: NATHAN [place]am Location[place] [facility] [place] Indication: eval for R heart strain, bilateral PE/saddle. Morbid obesity. 5ft 10 inches, 380 lbs. BP: 157 / 113 HR: 91 Rhythm: Sinus Technical Quality: Adequate MEASUREMENTS (Male / Female) Normal Values 2D ECHO LV Diastolic Diameter PLAX 5.2 cm 4.2 - 5.9 / 3.9 - 5.3 cm IVS Diastolic Thickness 1.2 cm 0.6 - 1.0 / 0.6 - 0.9 cm IVS Systolic Thickness 1.6 cm LVPW Diastolic Thickness 1.5 cm 0.6 - 1.0 / 0.6 - 0.9 cm LVPW Systolic Thickness 1.5 cm LVOT Diameter 2.1 cm LV Ejection Fraction 2D Teich 54.3 % LV Ejection Fraction MOD 4C 58.3 % LV Ejection Fraction MOD 2C 59.2 % LV Ejection Fraction 2C AL 60.7 % LA Diameter 2.3 cm Aorta at Sinotubular Diameter 2.5 cm IVC Diameter 1.5 cm M-MODE LA Ao Ratio MM 0.9 AV Cusp Separation MM 2.1 cm DOPPLER AV Peak Velocity 94.0 cm/s LVOT Peak Velocity 81.0 cm/s AV Area Cont Eq vti 3.2 cm squared AV Area Cont Eq pk 3.1 cm squared MV Peak Velocity 63.0 cm/s MV Area PHT 3.7 cm squared Mitral E to A Ratio 0.9 TR Peak Velocity 309.0 cm/s TR Peak Gradient 38.2 mmHg TV Peak E Velocity 53.0 cm/s PV Peak Velocity 78.0 cm/s FINDINGS Left Ventricle Normal LV size and ejection fraction of 59%. No gross wall motion normalities. Right Ventricle Possibly of normal size and ejection fraction Right Atrium Normal right atrial size. Left Atrium Possibly of normal size Mitral Valve No gross abnormalities noted Aortic Valve No gross abnormalities noted Tricuspid Valve Trace tricuspid valve regurgitation. Estimated PA pressure of 41 mmHg Pulmonic Valve Pulmonic valve not well visualized. Pericardium No pericardial effusion. Aorta Normal aortic annulus size. IVC Normal inferior vena cava. CONCLUSIONS Normal LV size and ejection fraction of 59%. No gross wall motion normalities. Trace tricuspid valve regurgitation. Mild pulmonary hypertension, estimated pulmonary artery peak systolic pressure of 41 mmHg There is no pericardial effusion. There are no intracardiac masses. Technically somewhat limited study because of the difficulty in visualizing right-sided structures well No similar previous studies are available for comparison Dr Angelito Porter MD FAC (Electronically Signed) Final Date: 05 Aug 2024 22:02 S
[2024-08-05 18:11] LABS: Troponin 5 6HR 12.19 ng/L (0-10); Troponin 5 6HR Delta 2.19 ng/L (0-12)
[2024-08-05 18:15] LABS: Partial Thromboplastin Time 76.5 SECONDS (23.9-36.7)
--- NOTE | 2024-08-05 18:23 | ECG_ITS ---
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 Measurements Intervals [place] Rate: 94 P: 3 VT: 140 QRS: 47 QRSD: 96 T: -2 QT: 376 QTc: 471 Interpretive Statements SINUS RHYTHM LOW QRS VOLTAGE IN PRECORDIAL LEADS [QRS DEFLECTION < 1.0 mV IN CHEST LEADS] MODERATE T-WAVE ABNORMALITY, CONSIDER ANTERIOR ISCHEMIA [-0.1+ mV T-WAVE IN V3/V4] Compared to ECG 08/05/2024 15:19:18 Low QRS voltage now present Myocardial infarct finding no longer present T-wave abnormality still present Possible ischemia still present Electronically Signed On 08-06-2024 06:36:16 CDT by Angelito Porter M.D. [email or web address]
[2024-08-05] MEDS: hyDRALAzine 20 mg/mL INJ 1 mL 10 MG IVP (21:04)
[2024-08-06] VITALS (13 sets, daily range): BP systolic 120–160; BP diastolic 76–116; PULSE 88–99; RESP 16–30; TEMP 36.4–36.7; O2SAT 84–100; BMI 55.5
--- NOTE | 2024-08-06 00:49 | PM.HP ---
Providers/Chief Complaint Admitting Physician: Susie Paul MD Primary Care Provider: Ron Meza MD Chief Complaint: chest pain, sob.foot pain History of Present Illness Hemalatha Lowe is a 49 year old female with medical history significant for morbid obesity with BMI greater than 55, patient has a history of high blood pressure and was taken off the blood pressure medication because her doctor feels that the blood pressure is well under control she tells me. Patient had been home coughing continuously over the past 2 to 3 weeks, she thought she had COVID. She was short of breath with chest pains that comes off-and-on. Patient complaining of right arm pain that is excruciating and has gotten worse today. Patient had presented to the emergency room for further evaluation. She was never hypoxemic on room air but was extremely short of breath and also had dyspnea on exertion she complained of leg pain as well. CT angio of the right upper extremity was obtained to further evaluate patient does have stenosis of the right upper extremity arteries and also showed bilateral pulmonary embolism that saddle embolism. Emergency room called [facility] in [place] with the interventional radiology to further evaluate if this can indicate embolectomy. Patient had his drain in EKG. Echocardiogram that was requested was done by the emergency room and they related that there was no sign of right heart strain and he has no reason to transfer the patient to the [facility]. They were not accepting her. They related that patient can be treated with heparin drip. Patient was admitted to [facility] with telemetry and heparin drip with protocol. Patient blood pressure has also exacerbated secondary to intrathoracic pressure due to PE Patient has been off of her blood pressure medication because she had done well without it the primary care doctor removed those medicine for her. Patient takes indomethacin for gout and meloxicam for back pain. This 2 medication had been held because of the risks of increasing chances for bleed in the setting of heparin drip I am replacing pain medicine with hydrocodone. Patient complaining of anxiety not been able to sleep he is not on any antianxiety at home I have also here in the emergency room giving him a one-time dose of Xanax 0.5 mg one-time. Review of Systems Narrative: System review upon 10 organ system review it was noted to be with respiratory failure, chest pains, bilateral leg pain. Patient otherwise was noted to be unremarkable. Medications/Allergies Home Medications ?Medication ?Instructions ?Recorded ?Confirmed ?Last Taken ?Type methocarbamol 750 mg tablet 750 mg PO TID PRN muscle spasm #20 04/20/23 08/05/24 Unknown Rx tabs levothyroxine 75 mcg capsule 75 mcg PO DAILY #60 caps 08/11/23 08/05/24 Unknown Rx indomethacin 50 mg capsule See Rx Instructions .Route 10/09/23 08/05/24 Unknown Rx .COMPLEX #21 caps meloxicam 15 mg tablet 15 mg PO DAILY PRN back pain #30 01/08/24 08/05/24 Unknown Rx tabs allopurinol 100 mg tablet 200 mg PO DAILY PRN gout 08/05/24 08/05/24 Unknown History minocycline 100 mg capsule 100 mg PO BID PRN Acne/rash 08/05/24 08/05/24 Unknown History Allergies Allergy/AdvReac Type Severity Reaction Status Date / Time No Known Allergies Allergy Verified 08/05/24 11:56 PFSH Acute PFSH: Medical History (Updated 08/06/24 @ 05:58 by Susie Paul MD) HTN (hypertension) Morbid obesity with BMI of 50.0-59.9, adult Rosacea Hypothyroidism No pertinent family history Surgical History No pertinent past surgical history Social History Smoking and tobacco/nicotine status: never used tobacco/nicotine Alcohol intake: current Alcohol intake frequency: few times a month Substance/Drug Use: never Adopted: No Caregiver/support person: No Lives independently: No Household members: spouse and family Vitals/I&O/Wt Last Vital Signs Temp 97.9 F 08/05/24 11:46 Pulse 99 08/06/24 00:27 Resp 18 08/06/24 00:27 BP 146/96 08/06/24 00:27 Pulse Ox 100 08/06/24 00:27 O2 Del Method Room Air 08/06/24 00:27 Weight last 48 hrs Weight 172.365 kg Physical Exam Narrative: Generally patient is in mild respiratory distress satting on room air at 94% 2 L placed patient satting at 96% with no conversational dyspnea. Bed with extreme dyspnea on exertion upon ambulating. HEENT normocephalic/atraumatic next number neck neck is supple Back cardiovascular heart rate is regular in the 80s to 90s and regular Chest lungs clear with fair air movement Abdomen soft nontender nondistended unremarkable extremities intact but with subjective bilateral pain. Neurology-patient is nonfocal, alert awake oriented x 3 Data 08/06/24 03:38 08/05/24 11:58 CT Abd/Pel: My impression: I attest that the patient has stenosis of the right upper extremity arteries on a CTA And bilateral pulmonary embolism with suddable embolism A&P Assessment and plan (1) Pulmonary embolism, bilateral: Continue heparin drip protocol - According to interventional radiology at [facility] patient is not a candidate for thrombectomy they feel that the patient should be treated with heparin drip (2) Acute saddle pulmonary embolism: Continue with heparin drip with protocol (3) 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 Patient does have a strain in the EKG. Continue series of troponin (4) Leg edema: (5) Gouty arthritis: (6) Foot pain: (7) Morbid obesity with BMI of 50.0-59.9, adult: Patient is with morbid obesity very high risk for cardiovascular pulmonary event Case discussed (8) Hypothyroidism: - This is chronic medical history continue patient's levothyroxine and obtain TSH for monitoring. (9) Strain of lumbar region: Continue pain medicine at this time we will hold all anti-inflammatory because of your risk of bleeding in the setting of heparin drip Will initiate patient on hydrocodone (10) HTN (hypertension): Patient had accelerated hypertension due to PE and its impacts intrathoracic play A dose of hydralazine 20 mg IV x 1 given patient did well and had a nosebleed because during this time today. PDMP PDMP Reviewed: Not Reviewed Attestations Medical Necessity Statement*: Patient has an extensive medical presentation with saddle pulmonary embolism bilaterally shortness of breath and chest pain with much dyspnea on exertion upon any effort patient desires to be in the hospital for at least 2 midnights Other Attestations: Patient has an extensive medical presentation with saddle pulmonary embolism bilaterally shortness of breath and chest pain with much dyspnea on exertion upon any effort patient desires to be in the hospital for at least 2 midnights Coding Level of Care Code 39790 Diagnoses Pulmonary embolism, bilateral I26.99 Acute saddle pulmonary embolism I26.92 Acute cor pulmonale presence: without acute cor pulmonale 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
--- NOTE | 2024-08-06 02:06 | PC.NURSE ---
pt move to hospital bed for comfort at this time.
[2024-08-06] MEDS: acetaminophen 325 mg Tablet 650 MG PO ×2 (03:31→16:10)
[2024-08-06 03:42] LABS: Basophils # 0.1 10^3/uL (0.0-0.1); Basophils % 0.5 %; Eosinophils # 0.3 10^3/uL (0.0-0.8); Eosinophils % 2.6 %; Hematocrit 44.2 % (36-47); Lymphocytes # 2.4 10^3/uL (0.8-4.8); Lymphocytes % 21.7 %; Mean Corpuscular HGB Conc 33.3 g/dL (30-55); Mean Corpuscular Hemoglobin 36.2 pg (27-33); Mean Corpuscular Volume 108.9 fl (85-98); Mean Platelet Volume 10.2 fL (7.4-10.4); Monocytes # 0.6 10^3/uL (0.2-0.9); Monocytes % 5.2 %; Neutrophils # 7.77 10^3/uL (1.8-7.7); Neutrophils % 69.5 %; Nucleated Red Blood Cells % 0 %; Platelet Count 213 10^3/cmm (157-399); Red Blood Count 4.06 10^6/uL (3.85-5.65); Red Cell Distribution Width 14.4 % (12.1-15.1); White Blood Count 11.19 10^3/uL (3.29-11.43)
[2024-08-06 03:55] LABS: INR 1.02 (0.8-1.2)
[2024-08-06 03:56] LABS: Partial Thromboplastin Time 37.1 SECONDS (23.9-36.7)
[2024-08-06 04:11] LABS: Chol HDL Ratio 6.18 mg/dL (0.0-4.40); Cholesterol 210 mg/dL (0-200); HDL Cholesterol 34 mg/dL (60-100); LDL Cholesterol Calculated 128 mg/dL (50-129); LDL HDL Ratio 3.76 RATIO (0.00-3.22); NT Pro B Type Natriuretic Pept 2256 pg/mL (0-125); Triglycerides 238 mg/dL (0-150)
[2024-08-06 05:32] LABS: Troponin(5th) Baseline 13 ng/L (0-10)
[2024-08-06 06:09] LABS: Troponin 5 2HR 12.18 ng/L (0-10)
[2024-08-06 06:17] LABS: Troponin 5 2HR Delta -0.82 ABS# (0-10)
--- NOTE | 2024-08-06 07:03 | ECG_ITS ---
[facility] Test Date: 2024-08-06 Pat Name: Hemalatha Lowe Department: Room: EDIP Gender: Female Manager Department: : 1975 Requested By: Susie Gross Order Number: [id number] Reading MD: Angelito Porter M.D. Measurements Intervals [place] Rate: 91 P: 37 ID: [id number] QRS: 29 QRSD: 100 T: -21 QT: 445 QTc: 548 Interpretive Statements SINUS RHYTHM LOW QRS VOLTAGE IN PRECORDIAL LEADS [QRS DEFLECTION < 1.0 mV IN CHEST LEADS] MODERATE T-WAVE ABNORMALITY, CONSIDER ANTEROLATERAL ISCHEMIA [-0.1+ mV T-WAVE IN V3-V6] Compared to ECG 08/05/2024 18:23:21 No significant changes Electronically Signed On 08-06-2024 17:49:30 CDT by Angelito Porter M.D. [id number]
[2024-08-06] MEDS: heparin drip 25,000 UNIT/500 ML PREMIX 52 UNIT IV (07:21)
--- NOTE | 2024-08-06 07:23 | PC.NURSE ---
PT HEPARIN DRIP INFUSED IN [facility] BY NITA PARIKH RN. PER [facility] NO HEPARIN STARTED AFTER INFUSION. THIS NURSE ROUNDED ON PT AND PT HAS HEPARIN DRIP INFUSING CURRENTLY AT 52MLS/HR. THIS NURSE CHECKED LAB VALUES AND NO INITIAL 6HR PTT HAD BEEN DRAWN AT 2300. THIS NURSE CALLED LAB AND THEY STATED 6HR PTT IS TO BE DRAWN THIS MORNING AT 0930. THIS NURSE DOCUMENTED CURRENT HEPARIN DRIP INFUSING AT TIME OF ROUNDING 0720. DRIP TO CONTINUE INFUSING AT CURRENT RATE UNTIL NEXT PTT DRAWN THEN WILL BE TITRATED ACCORDINGLY DUE TO MISSING PRIOR DOCUMENTATION.
[2024-08-06] MEDS: levothyroxine 75 mcg Tablet PO (07:49)
[2024-08-06] MEDS: TRAMadol 50 mg Tablet PO ×2 (08:39→22:18)
--- NOTE | 2024-08-06 09:17 | PC.NURSE ---
[facility] NURSE NOTIFIED IN REPORT OF DOCUMENTATION DISCREPANCY WITH HEPARIN. NO FURTHER QUESTIONS FOR NURSE AT TIME OF REPORT.
--- NOTE | 2024-08-06 09:20 | CT_ITS ---
WS: [id number] CTA OF THE CHEST WITH PULMONARY EMBOLISM PROTOCOL TECHNIQUE: High-resolution contrast enhanced CTA of the chest with coronal and sagittal reformatted images with pulmonary embolism protocol. MIP images are also reviewed. CLINICAL INFORMATION: saddle pe COMPARISON: 08/05/2024 DLP: 719.[address] scans at [facility] use at least one of these dose optimization techniques: automated exposure control; mA and/or kV adjustment per patient size (includes targeted exams where dose is matched to clinical indication); or iterative reconstruction. FINDINGS: Previously described send subtle embolus is unchanged in appearance compared to yesterday. In addition extensive diffuse bilateral filling defects in the segmental and subsegmental pulmonary arteries bilaterally. This involves the distal main pulmonary arteries in the symmetric fashion. This is similar to yesterday. Evidence of RIGHT heart strain with paradoxical bowing of the intraventricular septum. Lungs remain well aerated. No acute pulmonary infiltrates. Ovoid subpleural opacity LEFT lower lobe superior segment measuring 1.5 cm indeterminate but could represent a pulmonary infarct Adrenal glands are normal. Fatty atrophy of the pancreas. Hepatomegaly with diffuse fatty filtration of the liver. Small esophageal hiatal hernia. CT/CT angio chest PE protcl [id number] IMPRESSION: 1. Thin saddle embolus appears unchanged since yesterday. 2. Extensive bilateral pulmonary emboli in the distal main pulmonary arteries extending diffusely into the segmental and subsegmental pulmonary arteries bila terally similar to yesterday. 3. Evidence of RIGHT heart strain. 4. Ovoid subpleural opacity LEFT lower lobe suspicious for pulmonary infarct a lthough nonspecific. 5. Areas of ovoid enhancement in the RIGHT upper quadrant partially visualized near the gallbladder fossa and undersurface of the liver only partially evalua dora but could represent retained gallstones. This could be further evaluated wi th contrast-enhanced CT abdomen pelvis. Recommend correlation for history of ch olecystectomy. No prior CT abdomen pelvis imaging available
[2024-08-06 09:53] LABS: Estmated Average Glucose 108; Hemoglobin A1C 5.4 % (4.0-6.0)
--- NOTE | 2024-08-06 09:53 | PM.PN ---
Subjective Subjective: Admitted overnight. Seen with family at bedside. Patient is on 2 L of oxygen supplementation saturating more than 90%. No tachycardia. Complaining of occasional pain in the right arm. Denies any nausea, vomiting. States feeling better than when she had come in. Denies any difficulty in breathing currently. Vitals/I&O/Wt Last Vital Signs Temp 97.9 F 08/05/24 11:46 Pulse 89 08/06/24 09:13 Resp 18 08/06/24 07:56 BP 120/86 08/06/24 09:13 Pulse Ox 95 08/06/24 09:13 O2 Del Method Nasal Cannula 08/06/24 09:13 O2 Flow Rate 2 08/06/24 07:56 08/05/24 08/06/24 08/06/24 22:59 06:59 14:59 Intake Total 500 / 500 Balance 500 / 500 Weight last 48 hrs Weight 175.5 kg Weight 172.365 kg Physical Exam Narrative: General: No acute distress, AO x3, morbidly obese, anxious HEENT: PERRLA, pupils bilaterally equal and reactive Chest: Normal vesicular breath sounds, no added sounds, equal good air entry bilaterally CVS: S1-S2 regular, no murmurs, no tachycardia, no gallops, no rubs Abdomen: Soft, nontender, no organomegaly, bowel sounds present Neuro: No focal deficits, no facial deformity, AO x3, power 5/5 in all limbs Data 08/06/24 03:38 08/05/24 11:58 A&P Assessment and plan (1) Pulmonary embolism, bilateral: Continue heparin drip protocol. No concerns for right heart strain echocardiogram. Patient is not tachycardic. Plan to continue heparin drip for at least next 24 hours and transition to oral Eliquis as an outpatient. Will plan for dedicated CT of the chest. - According to interventional radiology at [facility] patient is not a candidate for thrombectomy they feel that the patient should be treated with heparin drip. 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 Does show some reconstitution. Patient denies any instrumentation, history of cancer. Denies being on control. Will check CEA, CA125. Patient should have a mammogram at the earliest with the PCP. Anticoagulation as above. (4) Leg edema: (5) Gouty arthritis: (6) Morbid obesity with BMI of 50.0-59.9, adult: Patient is with morbid obesity very high risk for cardiovascular pulmonary event Case discussed (7) Hypothyroidism: Check TSH. Continue home dose of levothyroxine. (8) Strain of lumbar region: Tramadol 50 mg every 6 hours as needed. (9) HTN (hypertension): Goal blood pressure less than 140/90 manage with mean over 65. Currently blood pressure stable. Continue to monitor. Plan Full code Cardiac diet Heparin drip will be sufficient for DVT prophylaxis Protonix for PUD prophylaxis PDMP PDMP Reviewed: Not Reviewed Attestations Medical Necessity Statement*: Hope Lowe is being changed to inpatient status as stay will now exceed 2 midnights. 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
[2024-08-06 10:03] LABS: Partial Thromboplastin Time 37.7 SECONDS (23.9-36.7)
[2024-08-06 10:07] LABS: Procalcitonin 0.06 ng/mL (0-0.5); Thyroid Stimulating Hormone 12.64 uIU/mL (0.27-4.20); Vitamin B12 243 pg/mL (232-1245)
[2024-08-06] MEDS: iohexol 350 mg/mL 500 mL Btl (per mL) IV (10:07)
[2024-08-06 10:08] LABS: Troponin 5 6HR 10.75 ng/L (0-10)
[2024-08-06 10:09] LABS: Troponin 5 6HR Delta -2.25 ng/L (0-12)
[2024-08-06 10:18] LABS: Iron 52 ug/dL (37-145); Percent Saturation 15.1 % (20-50); Total Iron Binding Capacity 344 mcg/dl; Unsaturated Iron Binding 292 ug/dL (112-347)
--- NOTE | 2024-08-06 10:53 | ECG_ITS ---
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 Measurements Intervals [place] Rate: 92 P: 0 [place]: 152 QRS: 12 QRSD: 97 T: -47 QT: 388 QTc: 482 Interpretive Statements SINUS RHYTHM LOW QRS VOLTAGE IN PRECORDIAL LEADS [QRS DEFLECTION < 1.0 mV IN CHEST LEADS] INCOMPLETE RIGHT BUNDLE BRANCH BLOCK [90+ ms QRS DURATION, TERMINAL R IN V1/V2, 40+ ms S IN I/aVL/V4/V5/V6] MODERATE T-WAVE ABNORMALITY, CONSIDER ANTEROLATERAL ISCHEMIA [-0.1+ mV T-WAVE IN V3-V6] MODERATE T-WAVE ABNORMALITY, CONSIDER INFERIOR ISCHEMIA [-0.1+ mV T-WAVE IN II/aVF] Compared to ECG 08/06/2024 07:03:46 Incomplete right bundle-branch block now present T-wave abnormality still present Possible ischemia still present Electronically Signed On 08-06-2024 17:48:49 CDT by Angelito Porter M.D. [email or web address]
[2024-08-06] MEDS: pantoprazole DR 40 mg Tablet PO (11:51)
[2024-08-06 13:35] LABS: Carcinoembryonic Antigen 2.2 ng/mL (0.0-4.7); T3 Free 3.5 PG/ML (2.0-4.4)
[2024-08-06 14:01] LABS: CA 125 25.5 U/mL (0-35)
[2024-08-06] MEDS: heparin drip 25,000 UNIT/500 ML PREMIX 59 UNIT IV (14:21)
--- NOTE | 2024-08-06 16:03 | PC.NURSE ---
Provider updated that patient is requesting something for sleep tonight. Provider entered an order.
[2024-08-06 16:20] LABS: Adenovirus Not Detected (NOT DETECT); Chlamydia Pneumoniae Not Detected (NOT DETECT); Coronavirus 229E,HKU1,NL63,OC4 Not Detected (NOT DETECT); Human Metapneumovirus Not Detected (NOT DETECT); Human Rhinovirus/Enterovirus Not Detected (NOT DETECT); Influenza A Not Detected (NOT DETECT); Influenza A H1 Not Detected (NOT DETECT); Influenza A H1-2009 Not Detected (NOT DETECT); Influenza A H3 Not Detected (NOT DETECT); Influenza B Not Detected (NOT DETECT); Mycoplasma Pneumoniae Not Detected (NOT DETECT); Parainfluenza Virus Type 1 Not Detected (NOT DETECT); Parainfluenza Virus Type 2 Not Detected (NOT DETECT); Parainfluenza Virus Type 3 Not Detected (NOT DETECT); Parainfluenza Virus Type 4 Not Detected (NOT DETECT); Respiratory Syncytial Virus A Not Detected (NOT DETECT); Respiratory Syncytial Virus B Not Detected (NOT DETECT); SARS-COV-2 Not Detected (NOT DETECT)
[2024-08-06 16:22] LABS: Bilirubin Urine Negative (Negative); Blood Urine Negative (Negative); Glucose Urine UA Negative (Normal); Ketones Urine Negative (Negative); Leukocyte Esterase Urine Negative (Negative); Nitrate Urine Negative (Negative); Protein Urine Negative (Negative); Urine Appearance Clear (CLEAR); Urine Color Yellow (Yellow); pH Urine 6.5 (5-7)
[2024-08-06 16:27] LABS: Add Urine Microscopic? YES; Bacteria Urine None Seen /hpf; Hyaline Casts Urine 0.81 /lpf; Squamous Epithelial Cell Urine 0-5 /hpf (0-5); WBC Urine 0-5 /hpf (0-5)
[2024-08-06 16:29] LABS: Amphetamines Screen Urine Negative (Negative); Barbiturates Screen Urine Negative (Negative); Benzodiazepines Screen Urine Negative (Negative); Cocaine Screen Urine Negative (Negative); Opiate Screen Urine Negative (Negative); PCP Screen Urine Negative (Negative); THC Screen Urine Positive (Negative)
[2024-08-06 16:31] LABS: Specific Gravity, Urine 1.058 (1.005-1.030)
[2024-08-06 16:32] LABS: Add Urine Culture? No
--- NOTE | 2024-08-06 16:37 | PC.NURSE ---
Provider is updated that Ms Lowe, her BP this afternoon is elevated. the last 153/116, 147/108, 156/97 with a HR of 89-92. She has nothing for blood pressure at this time. 160/92 manual Provider ordered to Start on coreg 3.125 bid. Order entered.
[2024-08-06 18:04] LABS: Partial Thromboplastin Time 45.6 SECONDS (23.9-36.7)
[2024-08-06] MEDS: carvedilol 3.125 mg Tablet PO (18:25)
[2024-08-06] MEDS: atorvastatin 40 mg Tablet PO (20:39)
[2024-08-06] MEDS: trazodone 50 mg Tablet PO (20:39)
[2024-08-06] MEDS: heparin drip 25,000 UNIT/500 ML PREMIX 63 UNIT IV (23:31)
[2024-08-07] VITALS (7 sets, daily range): BP systolic 96–149; BP diastolic 70–101; PULSE 65–94; RESP 14–31; TEMP 36.4–36.6; O2SAT 88–95
[2024-08-07 00:16] LABS: Partial Thromboplastin Time 45.5 SECONDS (23.9-36.7)
[2024-08-07] MEDS: heparin 5,000 unit/mL INJ 1 mL IVP (01:18)
--- NOTE | 2024-08-07 01:28 | PC.NURSE ---
Patient ptt came back at 45.5 per heparin protocol the gtt would need to be titrated to 67 mls/hr. The bolus protocol for heparin also does not have a weight listed for this patient. IV checked and is patent. Dr. Paul notified as this is a high upper limit on pump. Per MD the patient weight may play a role and continue as per protocol. As per the bolus proceed with the 2800 units. spring up supervisor notified of situation.
[2024-08-07 04:08] LABS: Basophils # 0.1 10^3/uL (0.0-0.1); Basophils % 0.6 %; Eosinophils # 0.4 10^3/uL (0.0-0.8); Eosinophils % 3.9 %; Hematocrit 41.8 % (36-47); Lymphocytes # 2.4 10^3/uL (0.8-4.8); Lymphocytes % 23.8 %; Mean Corpuscular HGB Conc 32.8 g/dL (30-55); Mean Corpuscular Hemoglobin 36.8 pg (27-33); Mean Corpuscular Volume 112.4 fl (85-98); Mean Platelet Volume 10.3 fL (7.4-10.4); Monocytes # 0.6 10^3/uL (0.2-0.9); Monocytes % 5.7 %; Neutrophils # 6.57 10^3/uL (1.8-7.7); Neutrophils % 65.4 %; Nucleated Red Blood Cells % 0 %; Platelet Count 206 10^3/cmm (157-399); Red Blood Count 3.72 10^6/uL (3.85-5.65); Red Cell Distribution Width 14.7 % (12.1-15.1); White Blood Count 10.04 10^3/uL (3.29-11.43)
[2024-08-07 04:27] LABS: Alanine Aminotransferase 13 U/L (0-33); Albumin Level 3.3 g/dL (3.5-5.2); Alkaline Phosphatase 92 U/L (35-105); Anion Gap 17.6 (5-19); Aspartate Amino Transferase 15 U/L (0-32); Blood Urea Nitrogen 8 mg/dL (6-20); Calcium 8.8 mg/dL (8.5-10.5); Carbon Dioxide 24 mmol/L (22-29); Chloride 98 mmol/L (98-107); Creatinine Clr Calc Pharmacy 146.1779; Globulin 3.3 g/dL (1.3-4.6); Glomerular Filtration Rate 75.6 mL/min (90-130); Glucose 119 mg/dL (65-115); Magnesium 1.9 mg/dL (1.7-2.3); Osmolality Calculated 281 mOsm/kg (285-295); Potassium 3.6 mmol/L (3.5-5.1); Sodium 136 mmol/L (136-145); Total Bilirubin 0.5 mg/dL (0.15-1.2); Total Protein 6.6 g/dL (6.6-8.7)
[2024-08-07 04:49] LABS: Folate Level 4.2 ng/mL (4.8-37.3)
[2024-08-07] MEDS: levothyroxine 75 mcg Tablet PO (06:17)
[2024-08-07] MEDS: heparin drip 25,000 UNIT/500 ML PREMIX 67 UNIT IV (07:34)
[2024-08-07 07:38] LABS: Partial Thromboplastin Time 119.9 SECONDS (23.9-36.7)
[2024-08-07] MEDS: TRAMadol 50 mg Tablet PO (07:51)
--- NOTE | 2024-08-07 08:11 | P.DS_ITS ---
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: Status: Acute (4) Leg edema: Status: Acute (5) Gouty arthritis: Status: Acute (6) Morbid obesity with BMI of 50.0-59.9, adult: Status: Acute (7) Hypothyroidism: Status: Acute Qualifiers: Hypothyroidism type: due to acquired atrophy of thyroid Qualified Code(s): E03.4 - Atrophy of thyroid (acquired) (8) Strain of lumbar region: Status: Acute Qualifiers: Encounter type: initial encounter Qualified Code(s): S39.012A - Strain of muscle, fascia and tendon of lower back, initial encounter (9) HTN (hypertension): Status: Acute Qualifiers: Hypertension type: other secondary hypertension Qualified Code(s): I15.8 - Other secondary hypertension Reason for Visit Reason for Visit: chest pain, sob.foot pain Brief History: History as per HPI: Hemalatha Lowe is a 49 year old female with medical history significant for morbid obesity with BMI greater than 55, patient has a history of high blood pressure and was taken off the blood pressure medication because her doctor feels that the blood pressure is well under control she tells me. Patient had been home coughing continuously over the past 2 to 3 weeks, she thought she had COVID. She was short of breath with chest pains that comes off-and-on. Patient complaining of right arm pain that is excruciating and has gotten worse today. Patient had presented to the emergency room for further evaluation. She was never hypoxemic on room air but was extremely short of breath and also had dyspnea on exertion she complained of leg pain as well. CT angio of the right upper extremity was obtained to further evaluate patient does have stenosis of the right upper extremity arteries and also showed bilateral pulmonary embolism that saddle embolism. Emergency room called [facility] in [place] with the interventional radiology to further evaluate if this can indicate embolectomy. Patient had his drain in EKG. Echocardiogram that was requested was done by the emergency room and they related that there was no sign of right heart strain and he has no reason to transfer the patient to the [facility]. They were not accepting her. They related that patient can be treated with heparin drip. Patient was admitted to [facility] with telemetry and heparin drip with protocol. Patient blood pressure has also exacerbated secondary to intrathoracic pressure due to PE Patient has been off of her blood pressure medication because she had done well without it the primary care doctor removed those medicine for her. Patient takes indomethacin for gout and meloxicam for back pain. This 2 medication had been held because of the risks of increasing chances for bleed in the setting of heparin drip I am replacing pain medicine with hydrocodone. Patient complaining of anxiety not been able to sleep he is not on any antianxiety at home I have also here in the emergency room giving him a one-time dose of Xanax 0.5 mg one-time. Hospital Course Hospital Course Given concerns for significant PE with possibility of status to before admission care was discussed in detail with IR at [facility] who recommended against thrombectomy and advised to continue IV heparin. Patient was admitted to the hospital further evaluation and management was continued on anticoagulation. Echocardiogram was done which showed a poor window given body habitus but did not show any gross right-sided heart strain and showed normal EF. Patient's hospitalization was otherwise unremarkable. Patient denied any recent travels, being on control pills, recent infections or surgeries, past history of blood clots. For further evaluation CEA, CA125 were checked within normal limits. AIDAN panel, antiphospholipid panel has been sent and is pending. She has been discharged in hemodynamically stable condition back home on oral Eliquis 10 mg twice daily for 7 days followed by 5 mg twice daily for next 6 months. She was found to have elevated blood pressure. Coreg 3.125 mg twice daily has been added to her medication list. She is to check her blood pressure daily at home maintain a blood pressure diary and follow-up with a primary care provider for further adjustment of antihypertensive. Risk factors were discussed in detail with the patient and she verbalized understanding. She is counseled to lose weight and possibly have a sleep study as an outpatient for undiagnosed sleep apnea. Home O2 evaluation was done prior to discharge. Patient is being provided medications to bed. Physical Exam Narrative: General: No acute distress, AO x3, morbidly obese, anxious HEENT: PERRLA, pupils bilaterally equal and reactive Chest: Normal vesicular breath sounds, no added sounds, equal good air entry bilaterally CVS: S1-S2 regular, no murmurs, no tachycardia, no gallops, no rubs Abdomen: Soft, nontender, no organomegaly, bowel sounds present Neuro: No focal deficits, no facial deformity, AO x3, power 5/5 in all limbs Discharge Data Studies Completed and Pending Completed Studies During Hospitalization Category Date Time Status CT angio upper extremity RT [[place] [address]] Stat Cat Scan 08/05/24 14:07 Completed CTA chest [CT angio chest PE protcl 23217] Stat Cat Scan 08/06/24 09:20 Completed XR chest 1V portable [id number] Stat Exams 08/05/24 11:42 Completed CV. echo complete* [id number] Stat Ultrasound 08/05/24 18:00 Completed US arterial duplex upper extremity RT [CV arterial Ultrasound 08/05/24 12:41 [place] [id number]] Stat Pending at discharge Category Date Time Status Antiphospholipid Antibody Doe Routine Lab 08/06/24 12:56 Received MAG [Magnesium] AM LABS Lab 08/08/24 04:00 Ordered MAG [Magnesium] AM LABS Lab 08/09/24 04:00 Ordered [facility] AIDAN Profile Routine Lab 08/06/24 12:56 Received Platelet Count Q2D Lab 08/09/24 04:00 Ordered Radiology Impressions Chest X-Ray 08/05/24 11:42 IMPRESSION: No acute findings. Duplex Scan Upper Extremity Artery 08/05/24 12:41 IMPRESSION: Monophasic waveforms distal to the subclavian artery. Upper Extremity CTA 08/05/24 14:07 IMPRESSION: High-grade stenosis/occlusion from the mid axillary artery to the proximal to mid brachial artery. Reconstitution of the distal brachial artery, likely from collateral flow. The radial and ulnar arteries appear grossly patent. This could be further assessed with fluoroscopic angiography if warranted. ADDENDUM: 08/05/24 7632 Upon further review, there are filling defects within the right and left pulmonary arteries and visualized proximal bilateral upper lobar arteries, compatible with bilateral pulmonary emboli. There also appears to be a saddle embolus which extends into both the right and left pulmonary arteries. The extent of pulmonary emboli is not fully assessed on this examination, and a dedicated CTA chest tailored for pulmonary artery evaluation could be considered. ADDENDUM: 08/05/24 1648 THIS REPORT CONTAINS FINDINGS THAT MAY BE CRITICAL TO PATIENT CARE. The findings were verbally communicated via telephone conference with JESSIE PAREDES at 4:47 PM CDT on 08/05/2024. The findings were acknowledged and understood. Chest CTA 08/06/24 09:20 IMPRESSION: 1. Thin saddle embolus appears unchanged since yesterday. 2. Extensive bilateral pulmonary emboli in the distal main pulmonary arteries extending diffusely into the segmental and subsegmental pulmonary arteries bilaterally similar to yesterday. 3. Evidence of RIGHT heart strain. 4. Ovoid subpleural opacity LEFT lower lobe suspicious for pulmonary infarct although nonspecific. 5. Areas of ovoid enhancement in the RIGHT upper quadrant partially visualized near the gallbladder fossa and undersurface of the liver only partially evaluated but could represent retained gallstones. This could be further evaluated with contrast-enhanced CT abdomen pelvis. Recommend correlation for history of cholecystectomy. No prior CT abdomen pelvis imaging available Echocardiogram: CONCLUSIONS Normal LV size and ejection fraction of 59%. No gross wall motion normalities. Trace tricuspid valve regurgitation. Mild pulmonary hypertension, estimated pulmonary artery peak systolic pressure of 41 mmHg There is no pericardial effusion. There are no intracardiac masses. Technically somewhat limited study because of the difficulty in visualizing right-sided structures well No similar previous studies are available for comparison Dr Angelito Porter MD [facility] (Electronically Signed) Final Date: 05 Aug 2024 22:02 Laboratory Results WBC 10.04 10^3/uL (3.29-11.43) 08/07/24 03:51 RBC 3.72 10^6/uL (3.85-5.65) L 08/07/24 03:51 Hgb 13.70 g/dL (11.27-16.99) 08/07/24 03:51 Hct 41.8 % (36-47) 08/07/24 03:51 MCV 112.4 fl (85-98) H 08/07/24 03:51 MCH 36.8 pg (27-33) H 08/07/24 03:51 MCHC 32.8 g/dL (30-55) 08/07/24 03:51 RDW 14.7 % (12.1-15.1) 08/07/24 03:51 Plt Count 206 10^3/cmm (157-399) 08/07/24 03:51 MPV 10.3 fL (7.4-10.4) 08/07/24 03:51 Neut % (Auto) 65.4 % 08/07/24 03:51 Lymph % (Auto) 23.8 % 08/07/24 03:51 [place] % (Auto) 5.7 % 08/07/24 03:51 Eos % (Auto) 3.9 % 08/07/24 03:51 Baso % (Auto) 0.6 % 08/07/24 03:51 Neut # (Auto) 6.57 10^3/uL (1.8-7.7) 08/07/24 03:51 Lymph # (Auto) 2.4 10^3/uL (0.8-4.8) 08/07/24 03:51 [place] # (Auto) 0.6 10^3/uL (0.2-0.9) 08/07/24 03:51 Eos # (Auto) 0.4 10^3/uL (0.0-0.8) 08/07/24 03:51 Baso # (Auto) 0.1 10^3/uL (0.0-0.1) 08/07/24 03:51 Nucleated RBC % (auto) 0 % 08/07/24 03:51 Nucleated RBCs # 0.0 /100WBC 08/07/24 03:51 PT 14.10 SECONDS (12.1-14.9) 08/06/24 03:38 INR 1.02 (0.8-1.2) 08/06/24 03:38 APTT 119.9 SECONDS (23.9-36.7) H D 08/07/24 06:55 Sodium 136 mmol/L (136-145) 08/07/24 03:51 Potassium 3.6 mmol/L (3.5-5.1) 08/07/24 03:51 Chloride 98 mmol/L (98-107) 08/07/24 03:51 Carbon Dioxide 24 mmol/L (22-29) 08/07/24 03:51 Anion Gap 17.6 (5-19) 08/07/24 03:51 BUN 8 mg/dL (6-20) 08/07/24 03:51 Creatinine 0.8 mg/dL (0.5-0.9) 08/07/24 03:51 GFR Calculation 75.6 mL/min (90-130) L 08/07/24 03:51 Glucose 119 mg/dL (65-115) H 08/07/24 03:51 Estimat Average Glucose 108 08/06/24 03:38 Hemoglobin A1c 5.4 % (4.0-6.0) 08/06/24 03:38 Calculated Osmolality 281 mOsm/kg (285-295) L 08/07/24 03:51 Calcium 8.8 mg/dL (8.5-10.5) 08/07/24 03:51 Magnesium 1.9 mg/dL (1.7-2.3) 08/07/24 03:51 Iron 52 ug/dL (37-145) 08/06/24 05:37 TIBC 344 mcg/dl 08/06/24 05:37 % Saturation 15.1 % (20-50) L 08/06/24 05:37 Unsat Iron Binding 292 ug/dL (112-347) 08/06/24 05:37 Total Bilirubin 0.5 mg/dL (0.15-1.2) 08/07/24 03:51 AST 15 U/L (0-32) 08/07/24 03:51 ALT 13 U/L (0-33) 08/07/24 03:51 Alkaline Phosphatase 92 U/L (35-105) 08/07/24 03:51 Troponin T Baseline 13 ng/L (0-10) H 08/06/24 03:38 Troponin T 120 Minute 12.18 ng/L (0-10) H 08/06/24 05:37 Delta Troponin T -0.82 ABS# (0-10) L 08/06/24 05:37 Troponin T Hi Sens 6Hr 10.75 ng/L (0-10) H 08/06/24 09:38 Troponin T Hi Sens 6Hr Delta -2.25 ng/L (0-12) L 08/06/24 09:38 NT-Pro-B Natriuret Pep 2256 pg/mL (0-125) H 08/06/24 03:38 Total Protein 6.6 g/dL (6.6-8.7) 08/07/24 03:51 Albumin 3.3 g/dL (3.5-5.2) L 08/07/24 03:51 Globulin 3.3 g/dL (1.3-4.6) 08/07/24 03:51 Triglycerides 238 mg/dL (0-150) H 08/06/24 03:38 Cholesterol 210 mg/dL (0-200) H 08/06/24 03:38 LDL Cholesterol, Calc 128 mg/dL (50-129) 08/06/24 03:38 HDL Cholesterol 34 mg/dL (60-100) L 08/06/24 03:38 LDL/HDL Ratio 3.76 RATIO (0.00-3.22) H 08/06/24 03:38 Cholesterol/HDL Ratio 6.18 mg/dL (0.0-4.40) H 08/06/24 03:38 Carcinoembryonic Ag 2.2 ng/mL (0.0-4.7) 08/06/24 12:56 CA 125 Antigen 25.5 U/mL (0-35) 08/06/24 12:56 Vitamin B12 243 pg/mL (232-1245) 08/06/24 05:37 Folate 4.2 ng/mL (4.8-37.3) L 08/07/24 03:51 Procalcitonin 0.06 ng/mL (0-0.5) 08/06/24 05:37 TSH 12.64 uIU/mL (0.27-4.20) H 08/06/24 05:37 Free T4 1.50 ng/dL (0.82-1.77) 08/06/24 12:56 Free T3 3.5 PG/ML (2.0-4.4) 08/06/24 12:56 Urine Color Yellow (Yellow) 08/06/24 16:10 Urine Appearance Clear (CLEAR) 08/06/24 16:10 Urine pH 6.5 (5-7) 08/06/24 16:10 Ur Specific [place] 1.058 (1.005-1.030) H 08/06/24 16:10 Urine Protein Negative (Negative) 08/06/24 16:10 Urine Glucose (UA) Negative (Normal) 08/06/24 16:10 Urine Ketones Negative (Negative) 08/06/24 16:10 Urine Blood Negative (Negative) 08/06/24 16:10 Urine Nitrate Negative (Negative) 08/06/24 16:10 Urine Bilirubin Negative (Negative) 08/06/24 16:10 Urine Urobilinogen 1.0 mg/dL (Negative) 08/06/24 16:10 Ur Leukocyte Esterase Negative (Negative) 08/06/24 16:10 Urine RBC 6-10 /hpf (0-2) 08/06/24 16:10 Urine WBC 0-5 /hpf (0-5) 08/06/24 16:10 Ur Squamous Epith Cells 0-5 /hpf (0-5) 08/06/24 16:10 Amorphous Sediment Not Reportable 08/06/24 16:10 Urine Bacteria None seen /hpf (NONE) 08/06/24 16:10 Hyaline Casts 0.81 /lpf 08/06/24 16:10 Urine Opiates Screen Negative ng/mL (Negative) 08/06/24 16:10 Ur Barbiturates Screen Negative ng/mL (Negative) 08/06/24 16:10 Ur Phencyclidine Scrn Negative ng/mL (Negative) 08/06/24 16:10 Ur Amphetamines Screen Negative ng/mL (Negative) 08/06/24 16:10 U Benzodiazepines Scrn Negative ng/mL (Negative) 08/06/24 16:10 Urine Cocaine Screen Negative ng/mL (Negative) 08/06/24 16:10 U Marijuana (THC) Screen Positive ng/mL (Negative) H 08/06/24 16:10 Anti-ds DNA IgG Ab Cancelled 08/06/24 12:56 Adenovirus (PCR) Not detected (NOT DETECT) 08/06/24 13:05 C. pneumoniae DNA (PCR) Not detected (NOT DETECT) 08/06/24 13:05 Coronavirus 229E (PCR) Not detected (NOT DETECT) 08/06/24 13:05 Human Metapneumovir PCR Not detected (NOT DETECT) 08/06/24 13:05 Influenza A (H1) PCR Not detected (NOT DETECT) 08/06/24 13:05 Influ A (H1/09) PCR Not detected (NOT DETECT) 08/06/24 13:05 Influenza A (H3) PCR Not detected (NOT DETECT) 08/06/24 13:05 Influenza Type A (PCR) Not detected (NOT DETECT) 08/06/24 13:05 Influenza Type B (PCR) Not detected (NOT DETECT) 08/06/24 13:05 M. pneumoniae (PCR) Not detected (NOT DETECT) 08/06/24 13:05 Parainfluenza 1 (PCR) Not detected (NOT DETECT) 08/06/24 13:05 Parainfluenza 2 (PCR) Not detected (NOT DETECT) 08/06/24 13:05 Parainfluenza 3 (PCR) Not detected (NOT DETECT) 08/06/24 13:05 Parainfluenza 4 (PCR) Not detected (NOT DETECT) 08/06/24 13:05 RSV Type A (PCR) Not detected (NOT DETECT) 08/06/24 13:05 RSV Type B (PCR) Not detected (NOT DETECT) 08/06/24 13:05 Entero/Rhino (PCR) Not detected (NOT DETECT) 08/06/24 13:05 SARS-CoV-2 (PCR) Not detected (NOT DETECT) 08/06/24 13:05 Vitals Last Vital Signs Temp 97.6 F 08/07/24 07:14 Pulse 88 08/07/24 07:41 Resp 16 08/07/24 07:41 BP 114/70 08/07/24 07:14 Pulse Ox 93 08/07/24 07:41 O2 Del Method Room Air 08/07/24 07:41 O2 Flow Rate 2 08/07/24 00:04 Discharge Plan Discharge Patient Disposition: Home Condition: Stable Prescriptions: Cristopher Martin DVT-PE Treat 30D Start 5 mg (74 tabs) tablets,dose pack See Rx Instructions .ROUTE .COMPLEX Qty: 74 0RF Rx Instructions: orally per package directions carvedilol [Coreg] 3.125 mg tablet 3.125 mg PO BID Qty: 60 0RF Rx Instructions: must administer with a meal/food levothyroxine 100 mcg capsule 100 mcg PO DAILY Qty: 30 0RF atorvastatin 40 mg Tablet 40 mg PO BEDTIME Qty: 30 0RF Continued methocarbamol 750 mg tablet 750 mg PO TID PRN (Reason: muscle spasm) Qty: 20 0RF indomethacin 50 mg capsule See Rx Instructions .ROUTE .COMPLEX Qty: 21 0RF Dose Instruction: TAKE 1 CAPSULE 3 TIMES A DAY WITH FOOD/MILK FOR GOUT FLARE. DO NOT TAKE MELOXICAM WHILE ON THE MED Rx Instructions: TAKE 1 CAPSULE 3 TIMES A DAY WITH FOOD/MILK FOR GOUT FLARE. DO NOT TAKE MELOXICAM WHILE ON THE MED. minocycline 100 mg capsule 100 mg PO BID PRN (Reason: Acne/rash) allopurinol 100 mg tablet 200 mg PO DAILY PRN (Reason: gout) Discontinued levothyroxine 75 mcg capsule 75 mcg PO DAILY Qty: 60 0RF meloxicam 15 mg tablet 15 mg PO DAILY PRN (Reason: back pain) Qty: 30 0RF Discharge Orders: Discharge Order (Routine); Ordered 08/07/24 Ordered By: Rocco Spencer Referrals: Ron Meza MD [Primary Care Provider, [facility]] - 08/21/24 9:00 am Discharge Diet: Cardiac Discharge Activity: Resume usual activity and Increase activity as tolerated Patient Instructions: Levothyroxine (By mouth), Carvedilol (By mouth), Apixaban (By mouth), Pulmonary Embolism (DC), Chronic Hypertension (DC), Leg Edema (ED), Opioid Safety Activity Restrictions/Additional Instructions: Take Eliquis 10 mg twice daily for 7 days followed by 5 mg twice daily for next 6 months. Check your blood pressure daily at home and maintain a blood pressure diary. Goal blood pressure is less than 140/90 mmHg. Take Coreg which is the antihypertensive twice daily. Dose of levothyroxine has been changed to 100 mcg daily. Recheck thyroid panel in 3 months. Patient would benefit from outpatient sleep study. Discharge Attestations Time Spent in Discharge Care*: greater than 30 min Specific Discharge Activities: educating patient, educating and/or supporting family/caregiver, discussing with pcp/other providers, discussing with business case analyst/social workers/dc planners, documenting/other paperwork and evaluating patient/reviewing data Status at Discharge: Cognitive status at discharge: cognitively intact , Behavioral status at discharge: cooperative , Functional status at discharge: independent ambulation , Overall status at discharge: patient is progressing back to baseline Quality Metrics Clinical Quality Measures [ Venous Thromboembolism { Contraindication to Overlap Therapy: None; Overlap threrpy ordered; VTE Discharge Education: Education about anticoagulant therapy/Care Notes given, Education about treatment options/disease process, Medication side effects education, INR/lab monitoring education as applicable, Follow-up arranged, Other; Deep Vein Thrombosis/Pulmonary Embolism Present on Admission: Yes;}] Coding Level of Care Code 60099 Total time (in minutes) for Discharge: 65 Diagnoses Pulmonary embolism, bilateral I26.99 Acute saddle pulmonary embolism I26.92 Acute cor pulmonale presence: without acute cor pulmonale 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
[2024-08-07 08:30] LABS: Anti-Double Strand DNA AB <1 IU/mL; Jo-1 Antibody <1.0 NEG AI (<1.0 NEG); SM/RNP Antibodies <1.0 NEG AI (<1.0 NEG); SS-B/LA IGG <1.0 NEG AI (<1.0 NEG); Scleroderma Ab(Scl-70) Ab <1.0 NEG AI (<1.0 NEG); Ss-A/Ro Igg <1.0 NEG AI (<1.0 NEG)
[2024-08-07] MEDS: carvedilol 3.125 mg Tablet PO (08:47)
[2024-08-07] MEDS: pantoprazole DR 40 mg Tablet PO (08:48)
--- NOTE | 2024-08-07 10:23 | PC.CHAP ---
Pastoral Care Encounter/Spiritual Assessment Type of Contact [] Declined varnish inspector visit [] Patient/Family/Request visit [] Outpatient visit [] Follow-up visit [] Physician referral [] Code/Alert [] Routine visit [] Staff referral [] Actively dying [] Patient sleeping [] Family support [] [] Out of room [] Palliative care [] [x] Receiving care in room [] Pre-surgical visit [] Trauma [] Long length of stay [] ICU visit [] Other: Relational/Emotional Strength [] Patient feels connected with others/family/visitors/staff [] Distress [] Loneliness/isolation [] Abandonment Spirituality of Patient [] Person of Carol [] Attends Hinduism of their [place] [] Believes in Prayer [] Reads Bible or Zoroastrian materials [] There are Spiritual issues to be addressed Show Horse Driver Interventions [] Prayer [] Active listening [] Non-anxious presence [] Spiritual/emotional support [] Crisis/trauma care [] Spiritual counseling [] Bereavement support [] Provided bereavement packet [] Provided Bible/devotional materials [] Provided toy/stuffed animal, coloring book to patient or family member [] Provided Communion [] Anointing/[place] [] Salvation [] Completed spiritual assessment [] Other: Impact on Illness or Injury [] Angry [] Fearful [] Anxious [] Often cries [] Exhaustion [] Unable to work [] Unable to attend roman catholic [] Unable to walk/stand [] Unable to read [] Unable to drive [] Unable to eat/drink [] Unable to sleep [] Unable to be with family [] Patient intubated [] Other: Summary Time spent with patient
--- NOTE | 2024-08-07 11:33 | PC.NURSE ---
Patient is still in room because she is waiting on her to come pick her up. Currently there are no hold in the ER and we have open rooms.
[2024-08-07] MEDS: apixaban 5 mg Tablet 10 MG PO (12:36)
[2024-08-10 07:26] LABS: Beta 2 Glycoprotein IGA <2.0 U/mL; Beta 2 Glycoprotein IGG <2.0 U/mL; Beta 2 Glycoprotein IGM <2.0 U/mL; CARDIOLIPIN AB (IGA) <2.0 APL-U/mL; CARDIOLIPIN AB (IGG) <2.0 GPL-U/mL; CARDIOLIPIN AB (IGM) <2.0 MPL-U/mL
== END 2024-08-07 12:20 | disposition home or self-care (01) | DRG 176 ==
LOC: ER 22:54 → MEDSURG 08-06 00:02 → ER IP 08-06 06:49 → CSU 08-06 08:25
PROVIDERS: Emergency Medicine; Admitting Provider Internal Medicine; Emergency Provider Physician Assistant; PCP Family Medicine; Visit Provider Student in an Organized Health Care Education/Training Program
DX: I26.92 Saddle embolus of pulmonary artery without acute cor pulmonale (principal); Z68.43 Body mass index [BMI] 50.0-59.9, adult; I70.208 Unspecified atherosclerosis of native arteries of extremities, other extremity; M10.9 Gout, unspecified; E66.01 Morbid (severe) obesity due to excess calories; E03.9 Hypothyroidism, unspecified; S39.012A Strain of muscle, fascia and tendon of lower back, initial encounter; X58.XXXA Exposure to other specified factors, initial encounter; I15.9 Secondary hypertension, unspecified; F41.9 Anxiety disorder, unspecified; L71.9 Rosacea, unspecified; R60.0 Localized edema; Z79.01 Long term (current) use of anticoagulants
CPT/HCPCS: 36415; 71045; 71275; 73206; 80053; 80061; 80306; 81001; 82378; 82607; 82746; 83036; 83516; 83540; 83550; 83735; 83880; 84145; 84439; 84443; 84481; 84484; 85025; 85610; 85730; 86146; 86147; 86225; 86235; 86304; 87486; 87581; 87633; 93005; 93306; 93931; 94664; 94760; 96365; 96366; 96375; 99285; A9270; J0360; J1644; J9999

== ENCOUNTER → 2024-09-30 13:59 | Outpatient (BNVA) | payer SELFPAY | PROVIDERS: PCP Family Medicine; Visit Provider Family Medicine | DX: E03.4 Atrophy of thyroid (acquired) (principal); M10.9 Gout, unspecified | CPT/HCPCS: 84439; 84443; 84550 ==

== ENCOUNTER 2024-12-25 13:47 | Emergency (ER) | payer MEDICAID, SELFPAY ==
[2024-12-25 13:50] VITALS: BP 151/74; PULSE 87; RESP 18; TEMP 36.7; O2SAT 97; BMI 47.3
--- NOTE | 2024-12-25 14:35 | ED_ITS ---
HPI - Epistaxis 2 General: Chief complaint: Epistaxis Stated complaint: nose bleed on blood thinner 2hrs+ Time Seen by Provider: 12/25/24 14:27 History of Present Illness: 49-year-old female on Eliquis, last dose this a.m., had upper respiratory symptoms recently, sleep apnea, overall clogged up sinuses, that resulted in most likely left nare profusely bleeding at 11:30 AM. This has been continued bleeding. Patient cannot tell where it is coming from. Denies any digital manipulation. Denies any hard blowing. This occurred suddenly at 11:30 AM. Has continued with bright red blood. Patient appears miserable at bedside with continued bleeding bright red blood. Onset (ago): hour(s) (2) Associated symptoms: Deny headache(s) or vomiting Related Data Previous Rx's ?Medication ?Instructions ?Recorded apixaban 5 mg tablet (Eliquis) 5 mg PO BID #180 tabs 0 08/21/24 atorvastatin 40 mg tablet 40 mg PO BEDTIME #90 tabs carvedilol 3.125 mg tablet (Coreg) 3.125 mg PO BID #18 0 tabs 08/21/24 allopurinol 300 mg tablet 300 mg PO DAILY PRN gout #90 tabs 09/30/24 colchicine 0.6 mg tablet See Rx Instructions PO DAILY gouty 09/30/24 flare #30 tabs levothyroxine 100 mcg capsule 100 mcg PO DAILY #90 cap s 10/01/24 cefdinir 300 mg capsule 300 mg PO BID 10 days #20 ca ps 12/25/24 methocarbamol 500 mg tablet 500 mg PO Q8H PRN muscle s pasm #30 12/25/24 tabs Allergies Allergy/AdvReac Type Severity Reaction Status Date / Time No Known Allergies Allergy Verified 09/30/24 13:31 Review of Systems 2 ENMT: Reports: nasal discharge, nasal congestion, nasal obstruction, epistaxis and post nasal drip Card: Denies: chest pain or palpitations Resp: Denies: dyspnea or productive cough GI: Denies: abdominal pain, nausea or vomiting : Denies: flank pain or difficulty voiding Musc: Denies: neck pain or back pain Skin/Breast: Denies: rash or pruritus Neuro: Denies: headache(s) or numbness in extremities Psych: Denies: anxiety or depression COUNTS INCLUDE 234 BEDS AT THE [facility] ED 2 PFSH: Medical History (Updated 12/25/24 @ 15:50 by ELMER Maurer) HLD (hyperlipidemia) HTN (hypertension) Morbid obesity with BMI of 50.0-59.9, adult Rosacea Hypothyroidism No pertinent family history Surgical History No pertinent past surgical history Social History Smoking and tobacco/nicotine status: former use of tobacco/nicotine Alcohol intake: current Alcohol intake frequency: few times a month Substance/Drug Use: never Adopted: No Caregiver/support person: No Lives independently: No Household members: spouse and family Physical Exam 2 Const: COMMON NORMALS: no acute distress and patient oriented x3 GENERAL APPEARANCE: cooperative, in distress and anxious HENMT: NOSE: Epistaxis present on the left anterior source (Appears, however unable to visualize), clots present (quite large) and source not visualized Neck/C-Spine: COMMON NORMALS: full ROM, no lymphadenopathy, supple and no meningeal signs Lymph: LYMPHATIC: no lymphadenopathy noted Chest: COMMONS NORMALS: normal inspection of the chest and normal palpation of entire chest wall Resp: COMMON NORMALS: normal respiratory effort, No retractions and clear to auscultation bilaterally AUSCULTATION: clear to auscultation bilaterally Cardio: COMMON NORMALS: regular rate and regular rhythm RATE: regular rate RHYTHM: regular rhythm GI: COMMON NORMALS: Normal to inspection, nondistended, normoactive bowel sounds present, Soft to palpation, non-tender and No hepatosplenomegaly present PALPATION: Yes Soft to palpation and Yes No hepatosplenomegaly present : COMMON NORMALS: Yes no CVA tenderness BLADDER/KIDNEY EXAM: Yes no CVA tenderness Back/Pelvis: COMMON NORMALS: no CVA tenderness Extremity: COMMON NORMALS: normal to inspection, full ROM and capillary refill normal Neuro: COMMON NORMALS: patient oriented x3 MENINGEAL SIGNS: Yes no meningeal signs Psych: COMMON NORMALS: mental status grossly normal, Normal thought process present, cooperative, normal affect, speech normal and activity/motor behavior normal SPEECH: Yes normal speech THOUGHT PROCESS: Normal thought process present Skin: COMMON NORMALS: no rashes or lesions noted, no wounds and turgor normal GENERAL SKIN EXAM: no rashes or lesions noted and turgor normal Procedures Epistaxis Control Time Out Performed: Yes Nostril: left Nose Prepped With: oxymetazoline and other (txa) Direct Inspection: unable to visualize and anterior source identified (most likely) Cautery Used: none Device Inserted: nasal tampon Patient Tolerated Procedure: no complications and other (patient upset/however tolerated as well as possible) Complications: pain Course 2 Reevaluation(s): Reevaluation #1: Reevaluation after procedure, 1 hour later, without any bleeding to mouth, naris. Nasal tampon in place slightly outside left nare due to patient comfort, insistence Vital Signs: Vital signs: Vital Signs Temperature 98.1 F 12/25/24 13:50 Pulse Rate 78 12/25/24 16:32 Respiratory Rate 18 12/25/24 13:50 Blood Pressure 151/74 12/25/24 13:50 Pulse Oximetry 98 12/25/24 16:32 Oxygen Delivery Me thod Room Air 12/25/24 13:50 MDM - Epistaxis Medical Decision Making Patient had profuse bleeding out left nare, bright red blood. Initially Afrin was sprayed x 10, however she continued to have bright red blood. There was no notable clotting at this time on the left nare. TXA was added, and had some dripping. Nasal passage was clear the best that could be done, and then nasal tampon was inserted with K-Y jelly, and TXA, plus TXA at site on left nare. A total of 1000 mg of TXA was added. Patient complained of pain when adding nasal tampon, and complained of being tortured. Her right nare had a quite large clot that was removed manually. She did not have any additional bleeding noted in the back of her mouth, or her right nare, or around the nasal tampon after checking in 1 hour. Her initial hemoglobin is 14. I have referred her to ENT, that she is supposed to follow-up on and have this evaluated, as well as hold her Eliquis, aspirin, ibuprofen, any NSAIDs, or bleeding anticoagulation. Risk of bleeding versus risk of coagulopathy was discussed. Risk of bleeding was worse, and therefore holding her medication until ENT follow-up and further decision making. Prophylactic antibiotic was sent to the pharmacy. No actual infectious nature was noted, however foreign body is present. Muscle relaxer sent to the pharmacy for pain control with Tylenol. Medical Records I reviewed the patient's medical records. Lab Data I reviewed the patient's lab results. 12/25/24 14:48 Laboratory Results WBC 8.37 10^3/uL (3.29-11.43) 12/25/24 14:48 RBC 4.24 10^6/uL (3.85-5.65) 12/25/24 14:48 Hgb 14.10 g/dL (11.27-16.99) 12/25/24 14:48 Hct 42.3 % (36-47) 12/25/24 14:48 MCV 99.8 fl (85-98) H 12/25/24 14:48 MCH 33.3 pg (27-33) H 12/25/24 14:48 MCHC 33.3 g/dL (30-55) 12/25/24 14:48 RDW 13.2 % (12.1-15.1) 12/25/24 14:48 Plt Count 298 10^3/cmm (157-399) 12/25/24 14:48 MPV 10.0 fL (7.4-10.4) 12/25/24 14:48 Neut % (Auto) 76.2 % 12/25/24 14:48 Lymph % (Auto) 16.7 % 12/25/24 14:48 [place] % (Auto) 4.8 % 12/25/24 14:48 Eos % (Auto) 1.7 % 12/25/24 14:48 Baso % (Auto) 0.4 % 12/25/24 14:48 Neut # (Auto) 6.38 10^3/uL (1.8-7.7) 12/25/24 14:48 Lymph # (Auto) 1.4 10^3/uL (0.8-4.8) 12/25/24 14:48 [place] # (Auto) 0.4 10^3/uL (0.2-0.9) 12/25/24 14:48 Eos # (Auto) 0.1 10^3/uL (0.0-0.8) 12/25/24 14:48 Baso # (Auto) 0.0 10^3/uL (0.0-0.1) 12/25/24 14:48 Nucleated RBC % (auto) 0 % 12/25/24 14:48 Nucleated RBCs # 0.0 /100WBC 12/25/24 14:48 No radiology studies performed this visit Discharge Plan Discharge Patient Disposition: Home Clinical Impression: Epistaxis Condition: Stable Prescriptions: New cefdinir 300 mg capsule 300 mg PO BID 10 Days Qty: 20 0RF methocarbamol 500 mg tablet 500 mg PO Q8H PRN (Reason: muscle spasm) Qty: 30 0RF No Action allopurinol 300 mg tablet 300 mg PO DAILY PRN (Reason: gout) Qty: 90 1RF colchicine 0.6 mg tablet See Rx Instructions PO DAILY Qty: 30 2RF Rx Instructions: take 2 tablets, then 1hr later take 1 tablet orally daily; Eliquis 5 mg tablet 5 mg PO BID Qty: 180 1RF atorvastatin 40 mg tablet 40 mg PO BEDTIME Qty: 90 1RF carvedilol [Coreg] 3.125 mg tablet 3.125 mg PO BID Qty: 180 1RF Rx Instructions: must administer with a meal/food levothyroxine 100 mcg capsule 100 mcg PO DAILY Qty: 90 1RF Discharge Orders: Discharge ED (Routine); Ordered 12/25/24 Ordered By: Tiara Meadows Referrals: Jose Luis Lebron MD [Physician, Ear, Nose, Throat] - 4-7 days Referral Note: Epistaxis/nasal tampon, on eliquis Ron Meza MD [Primary Care Provider, Family Practice] Discharge Diet: Usual diet and Soft Mechanical Discharge Activity: Resume usual activity Patient Instructions: Nosebleed (ED), Patient Portal & [place] Instructions Activity Restrictions/Additional Instructions: - Hold all your Eliquis, aspirin, ibuprofen - Tylenol for pain - Soft meal - Tape the end of that to your cheek with paper tape - Call Dr. Lebron for follow-up and tampon removal - Sorry you are going through this. Please return to the ED if anything like this occurs again between now and your ENT follow-up Print Language: Frisian Coding Level of Care Code ED Hiv/Aids Care Nurse for Dennise Felipe
[2024-12-25 15:43] LABS: Hematocrit 42.3 % (36-47); Hemoglobin 14.10 g/dL (11.27-16.99); Mean Corpuscular HGB Conc 33.3 g/dL (30-55); Mean Corpuscular Hemoglobin 33.3 pg (27-33); Mean Corpuscular Volume 99.8 fl (85-98); Nucleated Red Blood Cells % 0 %; Platelet Count 298 10^3/cmm (157-399); Red Blood Count 4.24 10^6/uL (3.85-5.65); White Blood Count 8.37 10^3/uL (3.29-11.43)
[2024-12-25 16:15] VITALS: PULSE 77; O2SAT 98
[2024-12-25 16:32] VITALS: PULSE 78; O2SAT 98
[2024-12-25] MEDS: tranexamic acid 1,000 mg/10mL SDV 1000 MG IRRIGATION (16:35)
== END 2024-12-25 16:34 | disposition home or self-care (01) ==
PROVIDERS: Emergency Provider Physician Assistant; PCP Family Medicine
DX: R04.0 Epistaxis (principal); Z79.01 Long term (current) use of anticoagulants; Z87.891 Personal history of nicotine dependence; E78.5 Hyperlipidemia, unspecified; I10 Essential (primary) hypertension
CPT/HCPCS: 85025; 99284; J9999

== ENCOUNTER → 2025-03-19 11:35 | Outpatient (BNVA) | payer MEDICAID, SELFPAY | PROVIDERS: PCP Family Medicine; Visit Provider Family Medicine | DX: E03.4 Atrophy of thyroid (acquired) (principal) | CPT/HCPCS: 80053; 84439; 84443; 85025 ==